=== PATIENT | male | born 1950 | race Caucasian/White ===

== ENCOUNTER 2018-04-20 19:56 | Inpatient (IN) | payer MEDICARE, OTHER, SELFPAY ==
[2018-04-20] VITALS (11 sets, daily range): BP systolic 95–120; BP diastolic 58–72; PULSE 70–95; RESP 20–28; TEMP 37.2–38.8; O2SAT 92–99; BMI 30.7
--- NOTE | 2018-04-20 20:03 | DI.RAD.S_ITS ---
PROCEDURE: XR CHEST 2V INDICATIONS: fever, low sat TECHNIQUE: 2 views of the chest were acquired. COMPARISON: None. FINDINGS: Surgical changes and devices: None. Lungs and pleura: No pleural effusions or pneumothorax. Retrocardiac patchy consolidative opacities. Mediastinum: Mediastinal contours are normal. Heart size is normal. Bones and chest wall: No suspicious bony abnormalities. Soft tissues appear unremarkable. IMPRESSION: Patchy retrocardiac opacities, suggestive of aspiration/atelectasis versus pneumonia. Please correlate clinically. Dictated by: Jacobo Ivory M.D. on 04/20/2018 at 21:49 Approved by: Jacobo Ivory M.D. on 04/20/2018 at 21:52
[2018-04-20] MEDS: SODIUM CHLORIDE 0.9% 1,000 ML 1000 ML IV (20:11)
--- NOTE | 2018-04-20 20:11 | ED.FEVER ---
HPI - Fever General Chief Complaint: Fever Stated Complaint: Fever/ Weakness Time Seen by Provider: 04/20/18 19:58 Source: patient and family Mode of arrival: EMS Limitations: no limitations History of Present Illness HPI Narrative: 68-year-old male brought in by EMS for concerns of a ?infection? patient's who is at bedside states that the patient has had MRSA in the past. She states that as today progressed he became more weak. Was short of breath at home. Started to not feel well. She did not give anything for it prior to arrival. Did have a fever. EMS reported the patient tachycardic and febrile. Patient was never hypotensive per EMS. Related Data Home Medications Medication Instructions Recorded Confirmed aspirin [Aspir-81] 81 mg PO DAILY 04/20/18 04/20/18 atorvastatin 40 mg PO DAILY 04/20/18 04/20/18 cyanocobalamin (vitamin B-12) 1,000 mcg PO DAILY 04/20/18 04/20/18 cyclobenzaprine 10 - 20 mg PO TID PRN 04/20/18 04/20/18 docusate sodium 100 mg PO DAILY 04/20/18 04/20/18 dronedarone 400 mg PO BID 04/20/18 04/20/18 duloxetine 120 mg PO DAILY 04/20/18 04/20/18 gabapentin 300 mg PO TID 04/20/18 04/20/18 glipizide 10 mg PO BID 04/20/18 04/20/18 hydrocodone-acetaminophen 1 tab PO Q6H PRN 04/20/18 04/20/18 isosorbide mononitrate 60 mg PO QAM 04/20/18 04/20/18 methyl salicylate-menthol 1 applic TOPICAL TID PRN 04/20/18 04/20/18 [Thera-Gesic] metoprolol succinate 50 mg PO DAILY 04/20/18 04/20/18 ranolazine 1,000 mg PO Q12H 04/20/18 04/20/18 sennosides 2 tab PO BID 04/20/18 04/20/18 warfarin 5 mg PO 5XW 04/20/18 04/20/18 warfarin [Coumadin] 5 mg PO 2XW 04/20/18 04/20/18 Allergies Allergy/AdvReac Type Severity Reaction Status Date / Time amitriptyline Allergy Unknown Verified 04/20/18 20:10 metformin Allergy Unknown Verified 04/20/18 20:10 Review of Systems Constitutional Reports chills, Reports fatigue, Reports fever(s), Reports headache(s), Reports lethargy and Reports weakness Eyes Denies change in vision, Denies diplopia, Denies loss of vision and Denies tunnel vision ENT Ears, Nose, Mouth, and Throat: Reports headache(s), Denies sinus pressure and Denies sore throat Comments: Dry mouth Cardiovascular Denies chest pain, Denies irregular heart rhythm, Denies lightheadedness, Denies palpitations, Reports dyspnea, Reports dyspnea on exertion and Denies orthopnea Respiratory Reports cough, Reports dyspnea and Reports dyspnea on exertion Comments: Gastrointestinal Gastrointestinal: Denies diarrhea, Denies nausea and Denies vomiting Genitourinary Denies dysuria Musculoskeletal Reports myalgias, Reports arthralgias and Denies muscle cramps Integumentary/Breasts Denies rash, Denies sores and Denies wounds Neurologic Denies confusion, Reports headache(s), Denies loss of vision and Reports weakness Psychiatric Denies confusion Endocrine Reports fatigue and Denies palpitations Hematologic/Lymphatic Denies easy bruising Exam Initial Vital Signs Initial Vital Signs: Vital Signs Temperature 100.1 F H 04/20/18 20:04 Pulse Rate 93 H 04/20/18 20:04 Respiratory Rate 27 H 04/20/18 20:04 Blood Pressure 120/67 04/20/18 20:04 Pulse Oximetry 92 04/20/18 20:04 Const General: cooperative, comfortable, No acute distress, diaphoretic and ill appearing HENCT Mouth: other (Dry mucous membranes) Throat: posterior oropharynx normal Chest Chest: normal inspection of the chest Resp Effort & Inspection: normal respiratory effort, able to speak in complete sentences, no respiratory distress and no use of accessory muscles Auscultation: clear to auscultation bilaterally, no rales, no rhonchi and no wheezes Cardio Rate: tachycardic Rhythm: regular rhythm Heart Sounds: no click, no gallops, no murmurs and no rubs Pulses: normal peripheral pulses GI Inspection: non-distended Palpation: soft, no hepatosplenomegaly, No guarding, No pulsatile mass and No tender Auscultation: normal bowel sounds Back/Spine/Pelvis Back: No CVA tenderness Skin General: no rashes or lesions noted, No jaundice and No petechiae Neuro General: alert, awake and oriented x3 Cognition: normal cognition Motor: muscle tone normal throughout Extrem General: normal to inspection Other: No gross deformities Course Orders Ordered: ED Orders 04/20/18 17:42 Bilirubin Total Stat Complete Blood Count AUTO DIFF Stat Lactate (Lactic Acid) Stat Procalcitonin Stat 04/20/18 19:40 Blood Culture Stat 04/20/18 20:03 XR chest 2V Stat 04/20/18 20:26 Blood Culture Stat 04/20/18 20:42 BMP [Basic Metabolic Panel] Stat 04/20/18 21:20 Urinalysis and Microscopic Stat Urine Culture Stat Sodium Chloride (Normal Saline 0.9%) 1,000 mls @ 125 mls/hr IV CONT GAGANDEEP Last Admin: 04/20/18 21:19 Dose: 125 mls/hr Levofloxacin (Levaquin) 750 mg in 150 mls @ 100 mls/hr IV NOW ONE Stop: 04/20/18 23:28 Discontinued Medications Acetaminophen (Tylenol) 975 mg PO NOW ONE Stop: 04/20/18 21:23 Last Admin: 04/20/18 21:31 Dose: 975 mg Sodium Chloride (Normal Saline 0.9%) 1,000 mls @ 1,000 mls/hr IV BOLUS ONE Stop: 04/20/18 21:04 Last Infusion: 04/20/18 21:12 Dose: 0 mls/hr Admin: 04/20/18 20:11 Dose: 1,000 mls/hr Ceftriaxone Sodium/Dextrose (Rocephin) 1 gm in 50 mls @ 100 mls/hr IV NOW ONE Stop: 04/20/18 21:51 Last Admin: 04/20/18 22:04 Dose: Vital Signs - 8 hr 04/20/18 20:04 04/20/18 20:05 04/20/18 20:07 Temperature 100.1 F H Pulse Rate 93 H 95 H Respiratory Rate 27 H 28 H Blood Pressure 120/67 Blood Pressure [Left Arm] 118/67 Pulse Oximetry 92 93 95 04/20/18 20:33 04/20/18 20:55 04/20/18 21:31 Temperature 101.8 F H 101.1 F H Pulse Rate 94 H Respiratory Rate 23 Blood Pressure Blood Pressure [Left Arm] 112/72 Pulse Oximetry 96 04/20/18 21:49 Temperature 99.1 F Pulse Rate 92 H Respiratory Rate 24 Blood Pressure Blood Pressure [Left Arm] 114/71 Pulse Oximetry 97 MDM - Fever Lab Data Attestation: I reviewed the patient's lab results. Result diagrams: 04/20/18 17:42 04/20/18 20:42 Lab Results 04/20/18 04/20/18 04/20/18 Range/Units 17:42 17:42 17:42 WBC 13.6 H (4.5-11.0) X10^3/uL RBC 3.94 L (4.5-5.9) X10^6/uL Hgb 13.2 L (13.5-17.5) g/dL Hct 38.2 L (41-53) % MCV 97.1 (80-100) fL MCH 33.5 (26-34) PG MCHC 34.5 (30-36) % RDW 12.6 (11.6-14.8) % Plt Count 173 (150-400) X10^3/uL Neut % (Auto) 92.3 H (50-75) % Lymph % (Auto) 1.8 L (25-40) % Dougherty % (Auto) 5.5 (3-14) % Eos % (Auto) 0.1 L (2-4) % Baso % (Auto) 0.3 (0-2) % Neut # (Auto) 64462 H (9928-6131) /uL Sodium Potassium Chloride Carbon Dioxide BUN Creatinine Estimated GFR BUN/Creatinine Ratio Glucose Lactate 1.1 (0.7-2.1) mmol/L Calcium Total Bilirubin (0.2-1.3) mg/dL Procalcitonin 2.54 H (<0.5) ng/mL Urine Color Urine Appearance Urine pH (4.5-8.0) Ur Specific [place] (1.000-1.035) Urine Protein (Negative) Urine Glucose (UA) (Normal) g/dL Urine Ketones (NEGATIVE) Urine Occult Blood (Negative) Urine Nitrate (Negative) Urine Bilirubin (NEGATIVE) Urine Urobilinogen (0.2) E.U./dL Ur Leukocyte Esterase (NEGATIVE) Urine RBC (0-5/HPF) Urine WBC (0-5/HPF) Urine Bacteria (None) Ur Culture Indicated? Micro UA Comment 06/10/18 06/10/18 06/10/18 Range/Units 17:42 19:40 19:40 WBC Cancelled (4.5-11.0) X10^3/uL RBC Cancelled (4.5-5.9) X10^6/uL Hgb Cancelled (13.5-17.5) g/dL Hct Cancelled (41-53) % MCV Cancelled (80-100) fL MCH Cancelled (26-34) PG MCHC Cancelled (30-36) % RDW Cancelled (11.6-14.8) % Plt Count Cancelled (150-400) X10^3/uL Neut % (Auto) Cancelled (50-75) % Lymph % (Auto) Cancelled (25-40) % Dougherty % (Auto) Cancelled (3-14) % Eos % (Auto) Cancelled (2-4) % Baso % (Auto) Cancelled (0-2) % Neut # (Auto) Cancelled (9692-7594) /uL Sodium Potassium Chloride Carbon Dioxide BUN Creatinine Estimated GFR BUN/Creatinine Ratio Glucose Lactate (0.7-2.1) mmol/L Calcium Total Bilirubin 0.9 (0.2-1.3) mg/dL Procalcitonin Cancelled (<0.5) ng/mL Urine Color Urine Appearance Urine pH (4.5-8.0) Ur Specific [place] (1.000-1.035) Urine Protein (Negative) Urine Glucose (UA) (Normal) g/dL Urine Ketones (NEGATIVE) Urine Occult Blood (Negative) Urine Nitrate (Negative) Urine Bilirubin (NEGATIVE) Urine Urobilinogen (0.2) E.U./dL Ur Leukocyte Esterase (NEGATIVE) Urine RBC (0-5/HPF) Urine WBC (0-5/HPF) Urine Bacteria (None) Ur Culture Indicated? Micro UA Comment 04/20/18 04/20/18 04/20/18 Range/Units 19:40 19:40 20:42 WBC (4.5-11.0) X10^3/uL RBC (4.5-5.9) X10^6/uL Hgb (13.5-17.5) g/dL Hct (41-53) % MCV (80-100) fL MCH (26-34) PG MCHC (30-36) % RDW (11.6-14.8) % Plt Count (150-400) X10^3/uL Neut % (Auto) (50-75) % Lymph % (Auto) (25-40) % Dougherty % (Auto) (3-14) % Eos % (Auto) (2-4) % Baso % (Auto) (0-2) % Neut # (Auto) (4198-6411) /uL Sodium Cancelled 132 L Potassium Cancelled 3.9 Chloride Cancelled 100 Carbon Dioxide Cancelled 20 L BUN Cancelled 17 Creatinine Cancelled 1.00 Estimated GFR Cancelled > 60.0 BUN/Creatinine Ratio Cancelled 17.0 Glucose Cancelled 189 H Lactate Cancelled (0.7-2.1) mmol/L Calcium Cancelled 8.7 Total Bilirubin Cancelled (0.2-1.3) mg/dL Procalcitonin (<0.5) ng/mL Urine Color Urine Appearance Urine pH (4.5-8.0) Ur Specific [place] (1.000-1.035) Urine Protein (Negative) Urine Glucose (UA) (Normal) g/dL Urine Ketones (NEGATIVE) Urine Occult Blood (Negative) Urine Nitrate (Negative) Urine Bilirubin (NEGATIVE) Urine Urobilinogen (0.2) E.U./dL Ur Leukocyte Esterase (NEGATIVE) Urine RBC (0-5/HPF) Urine WBC (0-5/HPF) Urine Bacteria (None) Ur Culture Indicated? Micro UA Comment 04/20/18 Range/Units 21:20 WBC (4.5-11.0) X10^3/uL RBC (4.5-5.9) X10^6/uL Hgb (13.5-17.5) g/dL Hct (41-53) % MCV (80-100) fL MCH (26-34) PG MCHC (30-36) % RDW (11.6-14.8) % Plt Count (150-400) X10^3/uL Neut % (Auto) (50-75) % Lymph % (Auto) (25-40) % Dougherty % (Auto) (3-14) % Eos % (Auto) (2-4) % Baso % (Auto) (0-2) % Neut # (Auto) (1530-2244) /uL Sodium Potassium Chloride Carbon Dioxide BUN Creatinine Estimated GFR BUN/Creatinine Ratio Glucose Lactate (0.7-2.1) mmol/L Calcium Total Bilirubin (0.2-1.3) mg/dL Procalcitonin (<0.5) ng/mL Urine Color Yellow Urine Appearance Clear Urine pH 5.0 (4.5-8.0) Ur Specific [place] 1.015 (1.000-1.035) Urine Protein Negative (Negative) Urine Glucose (UA) 3+ (Normal) g/dL Urine Ketones Trace H (NEGATIVE) Urine Occult Blood Negative (Negative) Urine Nitrate Negative (Negative) Urine Bilirubin Negative (NEGATIVE) Urine Urobilinogen 0.2 (0.2) E.U./dL Ur Leukocyte Esterase Negative (NEGATIVE) Urine RBC None seen (0-5/HPF) Urine WBC 0-1/hpf (0-5/HPF) Urine Bacteria None seen (None) Ur Culture Indicated? Not Reportable Micro UA Comment Not Reportable Imaging Data Chest x-ray: Radiologist's impression: PROCEDURE: XR CHEST 2V INDICATIONS: fever, low sat TECHNIQUE: 2 views of the chest were acquired. COMPARISON: None. FINDINGS: Surgical changes and devices: None. Lungs and pleura: No pleural effusions or pneumothorax. Retrocardiac patchy consolidative opacities. Mediastinum: Mediastinal contours are normal. Heart size is normal. Bones and chest wall: No suspicious bony abnormalities. Soft tissues appear unremarkable. IMPRESSION: Patchy retrocardiac opacities, suggestive of aspiration/atelectasis versus pneumonia. Please correlate clinically. Dictated by: Jacobo Ivory M.D. on 04/20/2018 at 21:49 MDM Narrative Medical decision making narrative: Patient arrived tachycardic and febrile. Was alert and oriented. Was somewhat slow to answer questions to begin with. No neck pain despite his headache that would make me concerned for meningitis. Was satting in the low 90s upon arrival. He is placed on 2 L of nasal cannula which improved his oxygen saturations. Chest x-ray concerning for retrocardiac consolidation. Urine unremarkable. Does not have an elevated lactate however does have an elevated white blood cell count an elevated procalcitonin. Patient was given Levaquin here in the ER. Was also given Tylenol which improved his fevers. I removed the patient's oxygen to see what happens with his oxygen saturation in he dipped to 86. He was placed back on 3 L which resolved his oxygen saturation to the low to mid 90s. Patient was tolerating oral intake. Discussed the case with Dr. Lancaster who will admit for IV antibiotics. Informed patient and his who was at bedside of the plan. They both expressed understanding and agreement. Discharge Plan Departure Patient Disposition: Admitted As Inpatient Clinical Impression: Pneumonia, Sepsis Prescriptions: No Action cyclobenzaprine 10 mg Tablet 10 - 20 mg PO TID PRN (Reason: Spasms) RF: 0 atorvastatin 40 mg Tablet 40 mg PO DAILY RF: 0 sennosides 8.6 mg Tablet 2 tab PO BID RF: 0 metoprolol succinate 50 mg Tablet Extended Release 24 Hr 50 mg PO DAILY RF: 0 glipizide 10 mg Tablet 10 mg PO BID RF: 0 hydrocodone-acetaminophen 10-325 mg Tablet 1 tab PO Q6H PRN (Reason: Pain (Scale Score 4-6)) RF: 0 aspirin [Aspir-81] 81 mg Tablet,Delayed Release (Dr/Ec) 81 mg PO DAILY RF: 0 isosorbide mononitrate 60 mg Tablet Extended Release 24 Hr 60 mg PO QAM RF: 0 warfarin 5 mg Tablet 5 mg PO 5XW RF: 0 warfarin [Coumadin] 5 mg Tablet 5 mg PO 2XW RF: 0 docusate sodium 100 mg Capsule 100 mg PO DAILY RF: 0 gabapentin 300 mg Capsule 300 mg PO TID RF: 0 duloxetine 60 mg Capsule,Delayed Release(Dr/Ec) 120 mg PO DAILY RF: 0 ranolazine 1,000 mg Tablet Extended Release 12 Hr 1,000 mg PO Q12H RF: 0 dronedarone 400 mg Tablet 400 mg PO BID RF: 0 methyl salicylate-menthol [Thera-Gesic] 15-1 % Cream 1 applic TOPICAL TID PRN (Reason: Pain (Scale Score 1-3)) RF: 0 cyanocobalamin (vitamin B-12) 1,000 mcg Capsule 1,000 mcg PO DAILY RF: 0
[2018-04-20 20:36] LABS: Add Manual Diff / Slide Review NO; Basophils Percent Auto 0.3 % (0-2); Eosinophils Percent Auto 0.1 % (2-4); Hematocrit 38.2 % (41-53); Hemoglobin 13.2 g/dL (13.5-17.5); Lymphocytes Percent Auto 1.8 % (25-40); Mean Corpuscular HGB Conc 34.5 % (30-36); Mean Corpuscular Hemoglobin 33.5 PG (26-34); Mean Corpuscular Volume 97.1 fL (80-100); Monocytes Percent Auto 5.5 % (3-14); Neutrophils Absolute Auto 12500 /uL (3000-5900); Neutrophils Percent Auto 92.3 % (50-75); Platelet Count 173 X10^3/uL (150-400); Red Blood Cell Count 3.94 X10^6/uL (4.5-5.9); Red Cell Distribution Width 12.6 % (11.6-14.8); White Blood Cell Count 13.6 X10^3/uL (4.5-11.0)
[2018-04-20 20:41] LABS: Procalcitonin 2.54 ng/mL (<0.5)
[2018-04-20 20:43] LABS: Lactate (Lactic Acid) 1.1 mmol/L (0.7-2.1)
[2018-04-20 20:46] LABS: Blood Urea Nitrogen 17 mg/dL (9-20); Calcium 8.7 mg/dL (8.4-10.2); Carbon Dioxide 20 mmol/L (22-32); Chloride 100 mmol/L (98-107); Estimated Glomerular Filt Rate > 60.0 mL/min (>60); Glucose 189 mg/dL (80-110); HEMOLYSIS 28 (0-50); Sodium 132 mmol/L (137-145)
[2018-04-20 20:50] LABS: Potassium 3.9 mmol/L (3.4-5.1)
[2018-04-20 20:54] LABS: Bilirubin Total 0.9 mg/dL (0.2-1.3)
[2018-04-20] MEDS: SODIUM CHLORIDE 0.9% 1,000 ML 125 ML IV (21:19)
[2018-04-20 21:29] LABS: Bacteria Urine None Seen; RBC Urine None Seen (0-5/HPF)
[2018-04-20] MEDS: ACETAMINOPHEN 325 MG TABLET 975 MG PO (21:31)
[2018-04-20 21:47] LABS: Appearance Urine UA CLEAR; Bilirubin Urine UA NEGATIVE (NEGATIVE); Color Urine UA YELLOW; Glucose Urine UA 3+ g/dL (Normal); Ketones Urine UA TRACE (NEGATIVE); Leukocyte Esterase Urine UA NEGATIVE (NEGATIVE); Nitrite Urine UA Negative (Negative); Occult Blood Urine UA NEGATIVE (Negative); Protein Urine UA NEGATIVE (Negative); Specific Gravity Urine UA 1.015 (1.000-1.035); Urobilinogen Urine UA 0.2 E.U./dL (0.2)
[2018-04-20 21:55] LABS: WBC Urine 0-1/HPF (0-5/HPF)
[2018-04-20] MEDS: levoFLOXacin 750 MG/150 ML PIGGYBACK 100 MG IV (22:06)
--- NOTE | 2018-04-20 22:56 | PC.NURSE ---
Admit note Patient admitted to room 210. Brought up on stretcher by nursing staff. Transferred to bed using slider board. Alert and oriented with pleasant affect. Patient very weak. Able to move all extremities. Oriented to room and call light, call light within reach. Spouse at bedside.
--- NOTE | 2018-04-20 23:39 | PC.NURSE ---
Patient admitted from Er @ 2230- awake, forgetful- weakness/lethargy today. Knows he is in hospital, unsure of date. says they have been travelling by car last month. Patient denies shortness of breath/ says he is warm and sweaty.
[2018-04-21] VITALS (19 sets, daily range): BP systolic 109–147; BP diastolic 61–79; PULSE 60–80; RESP 14–23; TEMP 36.3–37.9; O2SAT 92–100
--- NOTE | 2018-04-21 | DI.ECHO.S_ITS ---
[facility] +---------+ Hospital +---------+ : : [address] : : : : [id number] : : : : Phone: [phone] Echocardiogram Report + + :Name: OLINDA AGUILA Study Date: 04/21/2018 Height: 70 in : :[facility] Weight: 222 lb : : Gender: Male BSA: 2.2 m2 : :: 1950 Age: 68 yrs BP: 132/64 mmHg: :Reason For Study: Aortic valve replacement - bioprosthetic : : Performed By: Julienne Gregg : :Referring: AL ABRAHAM : + + Interpretation Summary Normal left ventricle size with ejection fraction 60-65%. Moderately dilated left atrium. Mildly dilated right atrium. Moderate mitral annular calcification. The bioprosthetic aortic valve is well-seated. Mildly enlarged ascending aorta. Procedure: A two-dimensional transthoracic echocardiogram with color flow and Doppler was performed. The study quality was technically adequate. There is no prior echocardiogram noted for this patient. The patient was in normal sinus rhythm during the exam. Left Ventricle: The left ventricle is normal in size. There is normal left ventricular wall thickness. The ejection fraction is estimated to be 60-65%. There are no focal wall motion abnormalities. Assessment of diastolic parameters indicates normal left ventricular diastolic function and normal filling pressures. Right Ventricle: The right ventricle grossly appears normal in size with probable normal systolic function. Atria: The left atrium is moderately dilated. The right atrium is mildly dilated. The interatrial septum is intact with no evidence for an atrial septal defect. Mitral Valve: The mitral valve leaflets appear mildly thickened, but open well. There is moderate mitral annular calcification. There is no mitral regurgitation noted. Aortic Valve: There is a porcine aortic valve. The prosthetic aortic valve is well-seated. There is trace aortic regurgitation. Tricuspid Valve: The tricuspid valve leaflets are thin and pliable. There is mild tricuspid regurgitation. The right ventricular systolic pressure is estimated at 34 mmHg assuming a right atrial pressure of 3 mm Hg. Pulmonic Valve: The pulmonic valve is normal in structure and function. There is trace pulmonic regurgitation. Great Vessels: The aortic root is normal size. The ascending aorta is mildly enlarged. The IVC is of normal diameter and collapses greater than 50% with a sniff. This suggests a low right atrial pressure of 3 mm Hg. Pericardium/ Pleura There is no pericardial effusion. There is no pleural effusion. MMode/2D Measurements & Calculations LVIDd: 5.3 cm LVOT diam: 2.3 cm LVIDs: 3.3 cm Ao root diam: 3.1 cm FS: 38.1 % Aortic Jxn: 2.0 cm EPSS: 0.66 cm asc Aorta Diam: 3.7 cm IVSd: 0.99 cm Ao Arch Diam (Prox Trans): 3.2 cm LVPWd: 1.0 cm LV mann. diameter/BSA (cm/m^2): 2.4 LV sys. diameter/BSA (cm/m^2): 1.5 LA dimension: 4.8 cm RA long axis: 5.5 cm LA A2 area: 33.0 cm2 RA area: 24.4 cm2 LA A4 area: 28.1 cm2 RA vol: 92.8 ml LA length (vol): 6.1 cm RA : 42.5 ml/m2 LA vol: 128.5 ml IVC diam: 1.4 cm LA vol index: 58.9 ml/m2 RVDd major: 6.1 cm RVD1 (basal): 4.3 cm RVD2 (mid): 3.8 cm Doppler Measurements & Calculations Ao V2 max: 281.4 cm/sec LVOT Max Ky: 94.4 cm/sec Ao V2 mean: 172.7 cm/sec LV V1 max P.6 mmHg Ao max P.7 mmHg LV V1 VTI: 26.2 cm Ao mean P.0 mmHg ANGI(I,D): 1.8 cm2 Ao V2 VTI: 60.0 cm ANGI(V,D): 1.4 cm2 sev ratio: 0.44 ANGI indexed to BSA (cm^2/m^2): 0.84 AI P1/2t: 478.6 msec AI dec slope: 272.0 cm/sec2 MV E max ky: 127.9 cm/sec TR max ky: 280.1 cm/sec MV A max ky: 105.0 cm/sec TR max P.4 mmHg MV E/A: 1.2 PA V2 max: 87.4 cm/sec Med Peak E' Ky: 7.9 cm/sec PA V2 mean: 58.8 cm/sec E/E' med: 16.2 PA mean P.6 mmHg Lat Peak E' Ky: 10.2 cm/sec PA Accel Time: 0.13 sec E/E' lat: 12.5 E/e' average: 14.4 MV dec time: 0.22 sec MV P1/2t: 67.2 msec MV 2t max ky: 128.9 cm/sec MVA(2t): 3.3 cm2 Electronically signed by: Manpreet Slade on Reading Physician:04/21/2018 04:41 PM
--- NOTE | 2018-04-21 00:55 | PC.NURSE ---
Addendum entered by Katey Olsen R.N. 04/21/18 06:44: Remains afebrile this morning. O2 sat 94-96% on 2L/min oxygen. Has slept most of shift. Original Note: Addendum entered by Katey Olsen R.N. 04/21/18 02:23: Temp now 97.3, patient calmer and no longer trying to get out of bed. Original Note: Addendum entered by Katey Olsen R.N. 04/21/18 01:36: Patient had small amount clear liquid, unmeasured emesis; medicated with Zofran. Rechecked temperature and now at 103.1 and patient much more confused. Asking to get up out of bed and walk around. Throwing legs out side of bed. Skin warm and damp; medicated with Tylenol. Patient moved to room 207 for closer staff monitoring. Original Note: Patient is oriented to self, place, birthdate, month and situation. Breath sounds CTA with sat of 99% on oxygen at 2L/min per NC. Currently complains of being cold and skin is warm; temperature is 100.1 but had Tylenol in ER around 2130. HRR and was SR on 0000 tele reading. Denies nausea. BT hypoactive and abdomen is rounded and firm to touch. Denies dysuria, frequency, urgency or incontinence; was able to use urinal with assistance. Independent with bed mobility. Complains of 3/10 chronic right flank pain but declines intervention. Scattered abrasions noted on right LE. Fall risk score is medium; bed alarm is activated due to confusion.
[2018-04-21] MEDS: ONDANSETRON 4 MG/2 ML INJ IV (01:20)
[2018-04-21] MEDS: ACETAMINOPHEN 325 MG TABLET 650 MG PO ×3 (01:26→14:06)
[2018-04-21] MEDS: SODIUM CHLORIDE 0.9% 1,000 ML 125 ML IV ×2 (07:22→16:20)
[2018-04-21 09:43] LABS: Acinetobacter baumannii Not Detected (Not Detect); Candida albicans Not Detected (Not Detect); Candida glabrata Not Detected (Not Detect); Candida krusei Not Detected (Not Detect); Candida parapsilosis Not Detected (Not Detect); Candida tropicalis Not Detected (Not Detect); E. coli Not Detected (Not Detect); Enterobacter cloacae complex Not Detected (Not Detect); Enterobacteriaceae species Not Detected (Not Detect); Enterococcus species Not Detected (Not Detect); Haemophilus influenzae Not Detected (Not Detect); KPC (carbapenem-resist gene) Not Detected (Not Detect); Listeria monocytogenes Not Detected (Not Detect); Methicillin-resistant gene Not Detected (Not Detect); Neisseria meningitidis Not Detected (Not Detect); Proteus species Not Detected (Not Detect); Pseudomonas aeruginosa Not Detected (Not Detect); Serratia marcescens Not Detected (Not Detect); Streptococcus agalactiae (Gr B Not Detected (Not Detect); Streptococcus pneumonia Not Detected (Not Detect); Streptococcus pyogenes (Gr A) Not Detected (Not Detect); Streptococcus species Not Detected (Not Detect)
[2018-04-21 09:44] LABS: Staphylococcus species Detected (Not Detect)
[2018-04-21 10:26] LABS: INR 2.4 (0.9-1.3); Prothrombin Time 25.8 SECONDS (10.1-12.7)
--- NOTE | 2018-04-21 10:50 | P.HP_ITS ---
History of Present Illness Date Patient Seen: 04/21/18 Time Patient Seen: 10:00 Chief complaint: Sepsis / Pneumonia Narrative: 68-year-old man with history of aortic valve replacement and recurrent endocarditis who was brought to the [facility] Emergency room yesterday for fever. He and his are visiting their daughter from [place]. He woke up yesterday morning feeling aching all over his body. Subsequently he started having fever. His temperature went up to 103. He has some mild chronic cough, however the cough has not gotten worse lately. He has some right calf pain. He was noted to have elevated white blood cell count. His blood culture 4 bottles were positive for Staph aureus. Chest x-ray showed possible retrocardiac infiltrate. He received IV Levaquin and ceftriaxone at the emergency room. He was admitted to the medicine floor for possible pneumonia. Patient was noted to be confused at the emergency room. His family feels his mental status has significantly improved overnight. Patient History Medical History Atrial fibrillation (Acute) Boxer's fracture (Acute) Diabetes (Acute) HTN (hypertension) (Acute) History of IBS (Acute) Prostate CA (Acute) Renal cancer (Acute) S/p nephrectomy (Acute) Surgical History H/O aortic valve replacement (Acute) History of partial knee replacement (Acute) Hx of exploratory laparotomy (Acute) S/P TURP (Acute) Comment: Coronary artery disease Endocarditis, initially occurred about 5 years ago after his kidney surgery. He received antibiotics treatment. He had recurrent endocarditis in 2014. A attic valve replacement in 2010 Kidney cancer, status post partial nephrectomy Chronic back pain after kidney surgery, he is on [place] and gabapentin for pain control. Family & Social History Family History: Reviewed 04/21/18 by Delphine Dhaliwal MD Social History: household members spouse Prior Living Arrangements RV Safety & Behavioral: Feels Safe in Current Yes Environment Been Physically Hurt or No Threatened By a Person Suicidal Ideation Description None Suicide Plan Description No Plan Tobacco & Substance use: Smoking Status Never smoker alcohol intake never Substance Use Type does not use Comment: He is and lives with his . Denies alcohol drinking or cigarette smoking. Meds Home Medications Medication Instructions Recorded Confirmed Type aspirin [Aspir-81] 81 mg PO DAILY 04/20/18 04/20/18 History atorvastatin 40 mg PO DAILY 04/20/18 04/20/18 History cyanocobalamin (vitamin B-12) 1,000 mcg PO DAILY 04/20/18 04/20/18 History cyclobenzaprine 10 - 20 mg PO TID PRN 04/20/18 04/20/18 History docusate sodium 100 mg PO DAILY 04/20/18 04/20/18 History dronedarone 400 mg PO BID 04/20/18 04/20/18 History duloxetine 120 mg PO DAILY 04/20/18 04/20/18 History gabapentin 300 mg PO TID 04/20/18 04/20/18 History glipizide 10 mg PO BID 04/20/18 04/20/18 History hydrocodone-acetaminophen 1 tab PO Q6H PRN 04/20/18 04/20/18 History isosorbide mononitrate 60 mg PO QAM 04/20/18 04/20/18 History methyl salicylate-menthol 1 applic TOPICAL TID PRN 04/20/18 04/20/18 History [Thera-Gesic] metoprolol succinate 50 mg PO DAILY 04/20/18 04/20/18 History ranolazine 1,000 mg PO Q12H 04/20/18 04/20/18 History sennosides 2 tab PO BID 04/20/18 04/20/18 History warfarin 5 mg PO 5XW 04/20/18 04/20/18 History warfarin [Coumadin] 5 mg PO 2XW 04/20/18 04/20/18 History Allergies Allergy/AdvReac Type Severity Reaction Status Date / Time amitriptyline Allergy Unknown Verified 04/20/18 20:10 metformin Allergy Unknown Verified 04/20/18 20:10 dicyclomine [From Bentyl] AdvReac Verified 04/20/18 22:50 Review of Systems Constitutional Constitutional: Reports body ache(s), Reports chills, Reports fatigue and Reports fever(s) Cardiovascular Comments: No chest pain Respiratory Comments: Mild chronic cough, denies shortness of breath Gastrointestinal Comments: No abdominal pain Genitourinary Comments: No dysuria Musculoskeletal Comments: He had right calf pain yesterday. He is having left leg pain today. Neurologic Comments: No numbness or tingling. Endocrine Endocrine: Reports fatigue Exam Vital Signs (past 8 hours): Vital Signs - 8 hr 3 04/21/18 05:03 04/21/18 08:00 04/21/18 09:50 Temperature 97.3 F L 97.7 F 99.6 F Pulse Rate 60 75 Respiratory Rate 20 14 Blood Pressure 116/68 114/64 Pulse Oximetry 94 99 3 04/21/18 10:07 Temperature 99.6 F Pulse Rate Respiratory Rate Blood Pressure Pulse Oximetry Pulse Oximetry 99 Oxygen Delivery Method Nasal Cannula Oxygen Flow Rate 1.5 Narrative Exam Narrative: GENERAL: Middle aged man in no acute distress. HEENT: Head normocephalic, atraumatic. Eyes pupils equal round NECK: Supple, no JVD, CHEST: Breath sounds equal bilaterally, no wheezes rales or rhonchi. CARDIAC: Regular rate and rhythm without murmurs, rubs or gallops. ABDOMEN: Soft, nontender. Normoactive bowel sounds all 4 quadrants. No guarding or rebound. EXTREMITIES: Normal range of motion, no clubbing or edema. NEUROLOGICAL: Alert and oriented; Normal muscle strength. SKIN: Warm, dry, no petechiae, no rashes or lesions. Objective Imaging Chest x-ray: Radiologist's impression: Patchy retrocardiac opacities, suggestive of aspiration/atelectasis versus pneumonia. Please correlate clinically. Labs Result Diagrams: 04/20/18 17:42 04/20/18 20:42 Labs: Laboratory Results - last 24 hr 04/20/18 04/20/18 04/20/18 17:42 17:42 17:42 WBC 13.6 H RBC 3.94 L Hgb 13.2 L Hct 38.2 L MCV 97.1 MCH 33.5 MCHC 34.5 RDW 12.6 Plt Count 173 Neut % (Auto) 92.3 H Lymph % (Auto) 1.8 L [place] % (Auto) 5.5 Eos % (Auto) 0.1 L Baso % (Auto) 0.3 Neut # (Auto) 27829 H PT INR Sodium Potassium Chloride Carbon Dioxide BUN Creatinine Estimated GFR BUN/Creatinine Ratio Glucose Lactate 1.1 Calcium Total Bilirubin Procalcitonin 2.54 H Urine Color Urine Appearance Urine pH Ur Specific [place] Urine Protein Urine Glucose (UA) Urine Ketones Urine Occult Blood Urine Nitrate Urine Bilirubin Urine Urobilinogen Ur Leukocyte Esterase Urine RBC Urine WBC Urine Bacteria Ur Culture Indicated? Micro UA Comment A. baumannii (PCR) [place] albicans (PCR) C. glabrata (PCR) C. krusei (PCR) C. parapsilosis (PCR) C. tropicalis (PCR) Enterobacteriac sp PCR E. cloacae complex PCR Enterococcus sp PCR E. coli (PCR) H. influenzae (PCR) Klebsiella oxytoca PCR Klebsiella pneumoniae List. monocytogenes PCR N. meningitidis (PCR) Proteus species (PCR) Serratia marcescens PCR Staphylococcus sp PCR Staph aureus (PCR) mecA-Methicil Res Gene Streptococcus sp PCR Group A Strep (PCR) Strep agalactiae (PCR) Strep pneumoniae (PCR) P. aeruginosa (PCR) Clem/B-Vanco Res Genes KPC-Carbap Res Gene PCR 04/20/18 04/20/18 04/20/18 17:42 19:40 19:40 WBC Cancelled RBC Cancelled Hgb Cancelled Hct Cancelled MCV Cancelled MCH Cancelled MCHC Cancelled RDW Cancelled Plt Count Cancelled Neut % (Auto) Cancelled Lymph % (Auto) Cancelled [place] % (Auto) Cancelled Eos % (Auto) Cancelled Baso % (Auto) Cancelled Neut # (Auto) Cancelled PT INR Sodium Potassium Chloride Carbon Dioxide BUN Creatinine Estimated GFR BUN/Creatinine Ratio Glucose Lactate Calcium Total Bilirubin 0.9 Procalcitonin Cancelled Urine Color Urine Appearance Urine pH Ur Specific [place] Urine Protein Urine Glucose (UA) Urine Ketones Urine Occult Blood Urine Nitrate Urine Bilirubin Urine Urobilinogen Ur Leukocyte Esterase Urine RBC Urine WBC Urine Bacteria Ur Culture Indicated? Micro UA Comment A. baumannii (PCR) [place] albicans (PCR) C. glabrata (PCR) C. krusei (PCR) C. parapsilosis (PCR) C. tropicalis (PCR) Enterobacteriac sp PCR E. cloacae complex PCR Enterococcus sp PCR E. coli (PCR) H. influenzae (PCR) Klebsiella oxytoca PCR Klebsiella pneumoniae List. monocytogenes PCR N. meningitidis (PCR) Proteus species (PCR) Serratia marcescens PCR Staphylococcus sp PCR Staph aureus (PCR) mecA-Methicil Res Gene Streptococcus sp PCR Group A Strep (PCR) Strep agalactiae (PCR) Strep pneumoniae (PCR) P. aeruginosa (PCR) Clem/B-Vanco Res Genes KPC-Carbap Res Gene PCR 04/20/18 04/20/18 04/20/18 19:40 19:40 20:42 WBC RBC Hgb Hct MCV MCH MCHC RDW Plt Count Neut % (Auto) Lymph % (Auto) [place] % (Auto) Eos % (Auto) Baso % (Auto) Neut # (Auto) PT INR Sodium Cancelled 132 L Potassium Cancelled 3.9 Chloride Cancelled 100 Carbon Dioxide Cancelled 20 L BUN Cancelled 17 Creatinine Cancelled 1.00 Estimated GFR Cancelled > 60.0 BUN/Creatinine Ratio Cancelled 17.0 Glucose Cancelled 189 H Lactate Cancelled Calcium Cancelled 8.7 Total Bilirubin Cancelled Procalcitonin Urine Color Urine Appearance Urine pH Ur Specific [place] Urine Protein Urine Glucose (UA) Urine Ketones Urine Occult Blood Urine Nitrate Urine Bilirubin Urine Urobilinogen Ur Leukocyte Esterase Urine RBC Urine WBC Urine Bacteria Ur Culture Indicated? Micro UA Comment A. baumannii (PCR) [place] albicans (PCR) C. glabrata (PCR) C. krusei (PCR) C. parapsilosis (PCR) C. tropicalis (PCR) Enterobacteriac sp PCR E. cloacae complex PCR Enterococcus sp PCR E. coli (PCR) H. influenzae (PCR) Klebsiella oxytoca PCR Klebsiella pneumoniae List. monocytogenes PCR N. meningitidis (PCR) Proteus species (PCR) Serratia marcescens PCR Staphylococcus sp PCR Staph aureus (PCR) mecA-Methicil Res Gene Streptococcus sp PCR Group A Strep (PCR) Strep agalactiae (PCR) Strep pneumoniae (PCR) P. aeruginosa (PCR) Clem/B-Vanco Res Genes KPC-Carbap Res Gene PCR 04/20/18 04/21/18 04/21/18 21:20 07:53 10:05 WBC RBC Hgb Hct MCV MCH MCHC RDW Plt Count Neut % (Auto) Lymph % (Auto) [place] % (Auto) Eos % (Auto) Baso % (Auto) Neut # (Auto) PT 25.8 H INR 2.4 H Sodium Potassium Chloride Carbon Dioxide BUN Creatinine Estimated GFR BUN/Creatinine Ratio Glucose Lactate Calcium Total Bilirubin Procalcitonin Urine Color Yellow Urine Appearance Clear Urine pH 5.0 Ur Specific [place] 1.015 Urine Protein Negative Urine Glucose (UA) 3+ Urine Ketones Trace H Urine Occult Blood Negative Urine Nitrate Negative Urine Bilirubin Negative Urine Urobilinogen 0.2 Ur Leukocyte Esterase Negative Urine RBC None seen Urine WBC 0-1/hpf Urine Bacteria None seen Ur Culture Indicated? Not Reportable Micro UA Comment Not Reportable A. baumannii (PCR) Not detected [place] albicans (PCR) Not detected C. glabrata (PCR) Not detected C. krusei (PCR) Not detected C. parapsilosis (PCR) Not detected C. tropicalis (PCR) Not detected Enterobacteriac sp PCR Not detected E. cloacae complex PCR Not detected Enterococcus sp PCR Not detected E. coli (PCR) Not detected H. influenzae (PCR) Not detected Klebsiella oxytoca PCR Not detected Klebsiella pneumoniae Not detected List. monocytogenes PCR Not detected N. meningitidis (PCR) Not detected Proteus species (PCR) Not detected Serratia marcescens PCR Not detected Staphylococcus sp PCR Detected H Staph aureus (PCR) Detected H mecA-Methicil Res Gene Not detected Streptococcus sp PCR Not detected Group A Strep (PCR) Not detected Strep agalactiae (PCR) Not detected Strep pneumoniae (PCR) Not detected P. aeruginosa (PCR) Not detected Clem/B-Vanco Res Genes Not Reportable KPC-Carbap Res Gene PCR Not detected Assessment & Plan Plan: Assessment/Plan Narrative: 1. Probable recurrent endocarditis: Continue ceftriaxone IV. We will also add vancomycin to cover possible MRSA infection. Follow his blood culture ID and sensitivity. He likely will require 6-8 weeks of IV antibiotics treatment. We will do a transthoracic echo today. He may need transesophageal echo in the near future to evaluate for possible vegetation or abscess. With his history of aortic replacement and history of recurrent endocarditis, there is concern of possible abscess around the aortic valve. He needs outpatient evaluation and follow up with his vascular surgeon for further evaluation and treatment. 2. Sepsis secondary to the probable recurrent endocarditis: He had fever up to 103, leukocytosis, tachycardia, and confusion on admission. He has fever and mental status have improved. We will continue treating the underlying cause. 3. Chronic atrial fibrillation: Continue Dronedarone. We will check his PT/ INR. Continue Coumadin for anticoagulation. 4. Type 2 diabetes: Check fingerstick glucose before meals and at bedtime. Continue glipizide per outpatient dosing 5. Coronary artery disease: Continue outpatient medications with metoprolol, Imdur, andRanodazine. 6. Chronic low back pain: Continue gabapentin and [place] per outpatient dosing 7. Hyperlipidemia: Continue atorvastatin 8. Code status: Do not resuscitate. Code status was discussed with patient himself. Quality VTE Deep Vein Thrombosis/Pulmonary Embolism Present on Admission: No
--- NOTE | 2018-04-21 10:58 | CM.DANOTE ---
DCP/Assessment: Reviewed chart. Patient is a 68yr old male admitted [facility] with sepsis. Primary payor is 1)Medicare 2) for Life. PCP is [facility] (Sergio Holt) in [place], [place]. Met with patient and spouse/Lizzie at bedside explained CM/SW role. Patient alert and oriented at time of visit but reports that he is not feeling well. RN reports patient currently with MRSA in hi blood. Patient reports that he was in area visiting family when he got sick. Patient plans to return to [place] when stable. Patient reports that he is completely I in all ADL's. Spouse confirms. At this time no d/c needs identified. Notified patient and spouse that CM team would continue to follow. Patient aware and agreeable. P: Home when stable. JASVIR Patel
[2018-04-21] MEDS: DULOXETINE 30 MG CAPSULE 120 MG PO (11:08)
[2018-04-21] MEDS: HYDROCODONE/ACET 10/325 TABLET 1 TAB PO ×2 (11:09→17:39)
[2018-04-21] MEDS: VANCOMYCIN 1,250 MG in SODIUM CHLORIDE 0.9% 250 ML IV ×2 (11:14→22:09)
[2018-04-21] MEDS: METOPROLOL ER 50 MG TABLET PO (11:36)
[2018-04-21] MEDS: GABAPENTIN 300 MG CAPSULE PO ×2 (14:06→20:58)
[2018-04-21] MEDS: CEFTRIAXONE 1 GM/50 ML FROZ.PIGGY IV (20:54)
[2018-04-21] MEDS: SENNOSIDES 8.6 MG TABLET 17.2 MG PO (20:57)
[2018-04-21] MEDS: glipiZIDE 5 MG TABLET 10 MG PO (20:57)
[2018-04-21] MEDS: DRONEDARONE 400 MG TABLET PO (20:58)
--- NOTE | 2018-04-21 21:36 | PC.NURSE ---
Patient has been dozing intermittently all shift so far, easily awakened by voice/touch. temps have been either wnl or low-grade (98.6, 99.1, 98.9, 99.4). This RN has not given patient tylenol except for norco 10 mg given at 1735 (325 mg total this shift). patient has felt slightly sweaty this shift, kept cool with uncovering his feet, cool washcloths, and icewater. call light in reach.
[2018-04-22] VITALS (14 sets, daily range): BP systolic 105–138; BP diastolic 56–80; PULSE 60–121; RESP 16–22; TEMP 36.4–37.3; O2SAT 90–98
--- NOTE | 2018-04-22 00:46 | PC.NURSE ---
Pt placed on isolation for positive Staph aureus cultures in blood. ED note indicates stated pt has history of MRSA.
[2018-04-22] MEDS: SODIUM CHLORIDE 0.9% 1,000 ML 125 ML IV (02:41)
[2018-04-22 07:32] LABS: Add Manual Diff / Slide Review NO; BUN Creatinine Ratio 27.1 (6-22); Basophils Percent Auto 0.3 % (0-2); Blood Urea Nitrogen 19 mg/dL (9-20); Calcium 8.4 mg/dL (8.4-10.2); Carbon Dioxide 23 mmol/L (22-32); Chloride 103 mmol/L (98-107); Eosinophils Percent Auto 0.3 % (2-4); Estimated Glomerular Filt Rate > 60.0 mL/min (>60); Glucose 79 mg/dL (80-110); HEMOLYSIS < 15 (0-50); Hematocrit 36.6 % (41-53); Hemoglobin 12.8 g/dL (13.5-17.5); Mean Corpuscular Hemoglobin 33.7 PG (26-34); Mean Corpuscular Volume 96.4 fL (80-100); Monocytes Percent Auto 7.9 % (3-14); Neutrophils Absolute Auto 6900 /uL (3000-5900); Neutrophils Percent Auto 85.5 % (50-75); Platelet Count 140 X10^3/uL (150-400); Potassium 3.7 mmol/L (3.4-5.1); Sodium 135 mmol/L (137-145); White Blood Cell Count 8.1 X10^3/uL (4.5-11.0)
[2018-04-22] MEDS: ASPIRIN EC 81 MG TABLET PO (08:39)
[2018-04-22] MEDS: ATORVASTATIN 20 MG TABLET 40 MG PO (08:39)
[2018-04-22] MEDS: CYANOCOBALAMIN (VITAMIN B-12) 500 MCG TABLET 1000 MCG PO (08:40)
[2018-04-22] MEDS: DRONEDARONE 400 MG TABLET PO ×2 (08:40→20:33)
[2018-04-22] MEDS: DOCUSATE 100 MG CAPSULE PO (08:40)
[2018-04-22] MEDS: GABAPENTIN 300 MG CAPSULE PO ×3 (08:41→20:33)
[2018-04-22] MEDS: DULOXETINE 30 MG CAPSULE 120 MG PO (08:42)
[2018-04-22] MEDS: ISOSORBIDE MONONITRATE ER 30 MG TABLET 60 MG PO (08:43)
[2018-04-22] MEDS: glipiZIDE 5 MG TABLET 10 MG PO ×2 (08:43→20:34)
[2018-04-22] MEDS: METOPROLOL ER 50 MG TABLET PO (08:44)
[2018-04-22] MEDS: SENNOSIDES 8.6 MG TABLET 17.2 MG PO ×2 (08:45→20:33)
[2018-04-22] MEDS: HYDROCODONE/ACET 10/325 TABLET 1 TAB PO ×2 (08:52→21:13)
--- NOTE | 2018-04-22 10:30 | PM.PN.1 ---
Subjective Date Patient Seen: 04/22/18 Time Patient Seen: 10:00 Interval history: Patient has improvement of his fever and malaise. He was able to sit in the chair and ambulated to the bathroom with assistance. Nursing has noticed his heart rate is in the range of 110-130. Exam Vital Signs (past 8 hours): Vital Signs - 8 hr 04/22/18 05:20 04/22/18 07:00 04/22/18 07:50 Temperature 99.1 F 98.6 F Pulse Rate 66 67 Respiratory Rate 22 16 Blood Pressure 138/77 H 134/80 H Pulse Oximetry 98 90 L 98 04/22/18 08:44 Temperature Pulse Rate 121 H Respiratory Rate Blood Pressure 134/80 H Pulse Oximetry Pulse Oximetry 98 Oxygen Delivery Method Nasal Cannula Oxygen Flow Rate 3 Narrative Exam Narrative: GENERAL: Middle aged man in no acute distress. NECK: Supple, no JVD, CHEST: Breath sounds equal bilaterally, no wheezes rales or rhonchi. CARDIAC: Irregular rhythm without murmurs, rubs or gallops. ABDOMEN: Soft, nontender. Normoactive bowel sounds all 4 quadrants. No guarding or rebound. EXTREMITIES: Normal range of motion, no clubbing or edema. NEUROLOGICAL: Alert and oriented; Normal muscle strength. SKIN: Warm, dry, no petechiae, no rashes or lesions. Objective Labs Result Diagrams: 04/22/18 06:30 04/22/18 06:30 Labs: Laboratory Results - last 24 hr 04/21/18 04/22/18 04/22/18 10:05 06:30 06:30 WBC 8.1 RBC 3.80 L Hgb 12.8 L Hct 36.6 L MCV 96.4 MCH 33.7 MCHC 35.0 RDW 13.0 Plt Count 140 L Neut % (Auto) 85.5 H Lymph % (Auto) 6.0 L [place] % (Auto) 7.9 Eos % (Auto) 0.3 L Baso % (Auto) 0.3 Neut # (Auto) 6900 H PT 25.8 H INR 2.4 H Sodium 135 L Potassium 3.7 Chloride 103 Carbon Dioxide 23 BUN 19 Creatinine 0.70 Estimated GFR > 60.0 BUN/Creatinine Ratio 27.1 H Glucose 79 L D Calcium 8.4 Assessment & Plan Plan: Assessment/Plan Narrative: 1. Probable recurrent endocarditis: Blood culture sensitivity is still pending. Continue ceftriaxone IV. And vancomycin IV. Follow his blood culture ID and sensitivity. He likely will require 6-8 weeks of IV antibiotics treatment. Transthoracic echocardiogram was done on April 21, 2018. The reading is still pending.. He may need transesophageal echo in the near future to evaluate for possible vegetation or abscess. With his history of aortic replacement and history of recurrent endocarditis, there is concern of possible abscess around the aortic valve. He needs outpatient evaluation and follow up with his vascular surgeon for further evaluation and treatment. 2. Sepsis secondary to the probable recurrent endocarditis: He had fever up to 103, leukocytosis, tachycardia, and confusion on admission. He has fever and mental status have improved. We will continue treating the underlying cause. 3. Chronic atrial fibrillation: Dronedarone was restarted today. Continue Coumadin for anticoagulation. INR was 2.4 on April 21, 2018. Continue follow his INR 4. Type 2 diabetes: Continue glipizide per outpatient dosing. Continue monitor his fingerstick glucose readings 5. Coronary artery disease: Continue outpatient medications with metoprolol, Imdur, and Ranodazine. 6. Chronic low back pain: Continue gabapentin and [place] per outpatient dosing. Restart cyclobenzaprine as needed 7. Hyperlipidemia: Continue atorvastatin 8. Code status: Do not resuscitate. Code status was discussed with patient himself. Quality VTE Deep Vein Thrombosis/Pulmonary Embolism Present on Admission: No
[2018-04-22] MEDS: VANCOMYCIN 1,250 MG in SODIUM CHLORIDE 0.9% 250 ML IV ×2 (10:55→21:14)
[2018-04-22] MEDS: RANOLAZINE 500 MG TAB.ER.12H 1000 MG PO ×2 (10:56→22:21)
[2018-04-22] MEDS: WARFARIN 5 MG TABLET PO (17:41)
[2018-04-22] MEDS: CYCLOBENZAPRINE 10 MG TABLET PO (17:45)
[2018-04-22] MEDS: CEFTRIAXONE 1 GM/50 ML FROZ.PIGGY IV (20:33)
[2018-04-23] VITALS (11 sets, daily range): BP systolic 92–143; BP diastolic 55–75; PULSE 59–76; RESP 16–20; TEMP 36.5–37.2; O2SAT 94–98
--- NOTE | 2018-04-23 | DI.CT.S_ITS ---
PROCEDURE: CT CHEST WO CON INDICATIONS: 68 year-old male with suspected pneumonia. TECHNIQUE: Noncontrast 5 mm thick sections acquired from the pulmonary apices to the posterior costophrenic angles. 7 mm thick coronal and sagittal MIP reformats were then acquired. For radiation dose reduction, the following was used: automated exposure control, adjustment of mA and/or kV according to patient size. COMPARISON: [facility], CR, XR CHEST 2V, 04/20/2018, 20:39. FINDINGS: Image quality: Excellent. Lungs and pleura: No acute air space opacities. There is minimal posterior lung base atelectasis. No pleural effusions or pneumothorax. Central and peripheral airways are patent and normal in caliber. Mediastinum: Heart size is upper normal, with diffuse coronary artery atherosclerosis status post bypass grafting. No pericardial effusion. No mediastinal adenopathy by size criteria. Thoracic aorta and central pulmonary arteries are normal in size. Esophagus is normal in caliber. No hiatal hernia. Bones and chest wall: No suspicious bony lesions. No vertebral body compression fractures. No axillary or supraclavicular adenopathy by size criteria. Thyroid gland is normal in size. Abdomen: Multiple hepatic simple cysts are present. IMPRESSION: 1. No imaging evidence for pneumonia. 2. Multiple variably sized hepatic simple cysts. Dictated by: Ronen Avila M.D. on 04/23/2018 at 12:34 Approved by: Ronen Avila M.D. on 04/23/2018 at 12:41
--- NOTE | 2018-04-23 00:49 | PC.NURSE ---
Patient has been resting quietly in bed since start of shift. Entered room twice with hourly rounding - postponing assessment to allow him to rest.
[2018-04-23] MEDS: ACETAMINOPHEN 325 MG TABLET 650 MG PO (05:49)
[2018-04-23 06:16] LABS: INR 1.4 (0.9-1.3); Prothrombin Time 14.9 SECONDS (10.1-12.7)
[2018-04-23] MEDS: ASPIRIN EC 81 MG TABLET PO (08:13)
[2018-04-23] MEDS: DOCUSATE 100 MG CAPSULE PO (08:14)
[2018-04-23] MEDS: DRONEDARONE 400 MG TABLET PO ×2 (08:14→21:12)
[2018-04-23] MEDS: ATORVASTATIN 20 MG TABLET 40 MG PO (08:14)
[2018-04-23] MEDS: CYANOCOBALAMIN (VITAMIN B-12) 500 MCG TABLET 1000 MCG PO (08:14)
[2018-04-23] MEDS: glipiZIDE 5 MG TABLET 10 MG PO ×2 (08:15→21:13)
[2018-04-23] MEDS: GABAPENTIN 300 MG CAPSULE PO ×3 (08:15→21:12)
[2018-04-23] MEDS: DULOXETINE 30 MG CAPSULE 120 MG PO (08:15)
[2018-04-23] MEDS: ISOSORBIDE MONONITRATE ER 30 MG TABLET 60 MG PO (08:16)
[2018-04-23] MEDS: METOPROLOL ER 50 MG TABLET PO (08:16)
[2018-04-23] MEDS: SENNOSIDES 8.6 MG TABLET 17.2 MG PO ×2 (08:16→21:13)
[2018-04-23] MEDS: SODIUM CHLORIDE 0.9% FLUSH 10 ML IV ×2 (08:17→21:14)
[2018-04-23] MEDS: HYDROCODONE/ACET 10/325 TABLET 1 TAB PO ×2 (08:17→22:40)
[2018-04-23] MEDS: CYCLOBENZAPRINE 10 MG TABLET PO (08:17)
[2018-04-23 10:17] LABS: Vancomycin Trough 10.5 ug/mL (10-20)
[2018-04-23] MEDS: VANCOMYCIN 1,250 MG in SODIUM CHLORIDE 0.9% 250 ML IV (11:09)
[2018-04-23] MEDS: RANOLAZINE 500 MG TAB.ER.12H 1000 MG PO ×2 (11:27→21:14)
--- NOTE | 2018-04-23 11:49 | PM.PN.1 ---
Subjective Date Patient Seen: 04/23/18 Time Patient Seen: 11:30 Interval history: Patient still feels warm and sweaty intermittently. He is having some neck pain. He continued to have mild intermittent cough. No other complaints. Exam Vital Signs (past 8 hours): Vital Signs - 8 hr 04/23/18 04:10 04/23/18 08:00 04/23/18 08:16 Temperature 98.6 F 98.3 F Pulse Rate 63 64 70 Respiratory Rate 20 16 Blood Pressure 121/75 H 132/71 H 132/71 H Pulse Oximetry 94 95 04/23/18 09:13 04/23/18 09:23 Temperature Pulse Rate 76 Respiratory Rate Blood Pressure 109/63 Pulse Oximetry 97 Pulse Oximetry 97 Oxygen Delivery Method Room Air Oxygen Flow Rate 0 Narrative Exam Narrative: GENERAL: Middle aged man in no acute distress. NECK: Supple, no JVD, CHEST: Breath sounds equal bilaterally, no wheezes rales or rhonchi. CARDIAC: Regular rhythm, 2/6 systolic murmur best heard at the left sternal border, no rubs or gallops. ABDOMEN: Soft, nontender. Normoactive bowel sounds all 4 quadrants. No guarding or rebound. EXTREMITIES: Normal range of motion, no clubbing or edema. NEUROLOGICAL: Alert and oriented; Normal muscle strength. SKIN: Warm, dry, no petechiae, no rashes or lesions. Objective Imaging Echocardiogram: Radiologist's impression: Normal left ventricle size with ejection fraction 60-65%. Moderately dilated left atrium. Mildly dilated right atrium. Moderate mitral annular calcification. The bioprosthetic aortic valve is well-seated. Mildly enlarged ascending aorta. Labs Result Diagrams: 04/22/18 06:30 04/22/18 06:30 Labs: Laboratory Results - last 24 hr 04/23/18 04/23/18 05:57 09:26 PT 14.9 H D INR 1.4 H Vancomycin Trough 10.5 Assessment & Plan Plan: Assessment/Plan Narrative: 1. 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 Repeat blood culture on April 22, 2018 are negative. Transthoracic echo was negative for vegetations. The mechanical aortic valve seemed to be seated properly on the transthoracic echo. I have talked to Dr. Mallory with Infectious Disease. We are going to change his antibiotics to nafcillin 2 g IV q.4 hours for treating MSSA endocarditis. The plan is to treat him for 6 weeks. I have also contacted Cardiology regarding to transesophageal echo. We will try to arrange for transesophageal echo prior to his hospital discharge if possible at [facility]. We will also place a PICC line today for anticipated IV antibiotics treatment. I have also contacted residential case manager regarding to discharge planning an anticipated home IV infusion. 2. Sepsis secondary to the probable recurrent endocarditis: He had fever up to 103, leukocytosis, tachycardia, and confusion on admission. Sepsis has resolved. We will continue treating the underlying cause. 3. Chronic atrial fibrillation and history of mechanical aortic valve replacement: Continue Dronedarone . Continue Coumadin for anticoagulation. INR was 1.4 today. We will cover with therapeutic dose of Lovenox today. Continue follow his INR. Discontinue Lovenox when INR is therapeutic. 4. Type 2 diabetes: Continue glipizide per outpatient dosing. Glucose is much better controlled after he was restarted on glipizide. Continue monitor his fingerstick glucose readings 5. Coronary artery disease: Continue outpatient medications with metoprolol, Imdur, and Ranodazine. Clinically stable without signs of acute exacerbation. 6. Chronic low back pain: Continue gabapentin and [place] per outpatient dosing. Continue cyclobenzaprine as needed 7. Hyperlipidemia: Continue atorvastatin 8. Code status: Do not resuscitate. Code status was discussed with patient himself. 9. Disposition: Discharge home with home IV infusion in 1-2 days. Quality VTE Deep Vein Thrombosis/Pulmonary Embolism Present on Admission: No
--- NOTE | 2018-04-23 11:52 | P.PN_ITS ---
Subjective Date Patient Seen: 04/23/18 Time Patient Seen: 11:30 Interval history: Patient still feels warm and sweaty intermittently. He is having some neck pain. He continued to have mild intermittent cough. No other complaints. Exam Vital Signs (past 8 hours): Vital Signs - 8 hr 3 04/23/18 04:10 04/23/18 08:00 04/23/18 08:16 Temperature 98.6 F 98.3 F Pulse Rate 63 64 70 Respiratory Rate 20 16 Blood Pressure 121/75 H 132/71 H 132/71 H Pulse Oximetry 94 95 3 04/23/18 09:13 04/23/18 09:23 Temperature Pulse Rate 76 Respiratory Rate Blood Pressure 109/63 Pulse Oximetry 97 Pulse Oximetry 97 Oxygen Delivery Method Room Air Oxygen Flow Rate 0 Narrative Exam Narrative: GENERAL: Middle aged man in no acute distress. NECK: Supple, no JVD, CHEST: Breath sounds equal bilaterally, no wheezes rales or rhonchi. CARDIAC: Regular rhythm, 2/6 systolic murmur best heard at the left sternal border, no rubs or gallops. ABDOMEN: Soft, nontender. Normoactive bowel sounds all 4 quadrants. No guarding or rebound. EXTREMITIES: Normal range of motion, no clubbing or edema. NEUROLOGICAL: Alert and oriented; Normal muscle strength. SKIN: Warm, dry, no petechiae, no rashes or lesions. Objective Imaging Echocardiogram: Radiologist's impression: Normal left ventricle size with ejection fraction 60-65%. Moderately dilated left atrium. Mildly dilated right atrium. Moderate mitral annular calcification. The bioprosthetic aortic valve is well-seated. Mildly enlarged ascending aorta. Labs Result Diagrams: 04/22/18 06:30 04/22/18 06:30 Labs: Laboratory Results - last 24 hr 04/23/18 04/23/18 05:57 09:26 PT 14.9 H D INR 1.4 H Vancomycin Trough 10.5 Assessment & Plan Plan: Assessment/Plan Narrative: 1. 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 Repeat blood culture on April 22, 2018 are negative. Transthoracic echo was negative for vegetations. The mechanical aortic valve seemed to be seated properly on the transthoracic echo. I have talked to Dr. Mallory with Infectious Disease. We are going to change his antibiotics to nafcillin 2 g IV q.4 hours for treating MSSA endocarditis. The plan is to treat him for 6 weeks. I have also contacted Cardiology regarding to transesophageal echo. We will try to arrange for transesophageal echo prior to his hospital discharge if possible at . We will also place a PICC line today for anticipated IV antibiotics treatment. I have also contacted window caser regarding to discharge planning an anticipated home IV infusion. 2. Sepsis secondary to the probable recurrent endocarditis: He had fever up to 103, leukocytosis, tachycardia, and confusion on admission. Sepsis has resolved. We will continue treating the underlying cause. 3. Chronic atrial fibrillation and history of mechanical aortic valve replacement: Continue Dronedarone . Continue Coumadin for anticoagulation. INR was 1.4 today. We will cover with therapeutic dose of Lovenox today. Continue follow his INR. Discontinue Lovenox when INR is therapeutic. 4. Type 2 diabetes: Continue glipizide per outpatient dosing. Glucose is much better controlled after he was restarted on glipizide. Continue monitor his fingerstick glucose readings 5. Coronary artery disease: Continue outpatient medications with metoprolol, Imdur, and Ranodazine. Clinically stable without signs of acute exacerbation. 6. Chronic low back pain: Continue gabapentin and [place] per outpatient dosing. Continue cyclobenzaprine as needed 7. Hyperlipidemia: Continue atorvastatin 8. Code status: Do not resuscitate. Code status was discussed with patient himself. 9. Disposition: Discharge home with home IV infusion in 1-2 days. Quality VTE Deep Vein Thrombosis/Pulmonary Embolism Present on Admission: No
--- NOTE | 2018-04-23 13:13 | CM.DPC ---
Addendum entered by JASVIR Cole 04/23/18 15:29: ADD: SW called [facility] in [place] with possible new referral and intake staff stated that both Medicare and [employer] do not cover Home Infusion and that pt would likely need to go to the closest infusion clinic called [facility] [place] ([phone]). Although pt likely will require multiple times a day dosing and this might not be reasonable option. SW spoke to Simon with [facility] and he stated that his experience is that [employer] will mushroom picker 75% of the cost of home infusion since Medicare does not cover any. SW will need to follow up on this with [place] [facility] companies tomorrow. SW met bedside with pt and spouse and updated on above information and they also recommended SW to call the [facility] with [facility] at [phone] to determine if they have any resources or ideas. Too late in the day for SW to call today and will need to try tomorrow. Plan: SW to continue coordinating with MD regarding medication and dosing to determine if pt can go to the Infusion Clinic vs Home Infusion vs possible SNF? SW to confirm tomorrow if [facility] will cover 75% of Home Infusion and call pt's [facility] RN at above listed number. JASVIR Cole Original Note: DCP Home with Home Infusion Planning Per MD, pt will need 6-8 weeks of IV-Abx at d/c and medication and dosing changing and will be more than once a day dosing. Pt to have Echo tomorrow at 1300 so likely not ready for d/c until Saturday. SW met bedside with pt and spouse and explained role and pt and spouse confirmed that they were planning to return home to [place] at d/c and do not feel that they can stay locally for the duration of the needed IV-Abx. SW discussed possible options, including SNF rehab for IV-Abx and the barriers of finding an Infusion Company in [place] and medication needs during travel back to [place]. Spouse states that the trip would likely take 5-7 hours dependent on traffic. Discussed the need to determine medication and dosing to determine if pt could safely get his dose of medication here right before discharge and wait for next dose until he is home. Pt and spouse understanding and agreeable with SW researching Home Infusion companies near their home in [place]. Plan: SW to follow for researching Home Infusion Companies by [facility] and waiting to determine medication and dosing. Pt lives in [place] and some barriers to discharge straight home but could be likely. JASVIR Cole
[2018-04-23] MEDS: NAFCILLIN 2 GM in SODIUM CHLORIDE 0.9% 100 ML 200 ML IV ×3 (14:10→21:11)
[2018-04-23] MEDS: ENOXAPARIN 100 MG/ML SYRINGE SUBCUT (14:10)
--- NOTE | 2018-04-23 15:41 | DI.RAD.S_ITS ---
PROCEDURE: XR CHEST FOR PICC 1V INDICATIONS: 68-year-old male with PICC placement. TECHNIQUE: One view of the chest was acquired. COMPARISON: [facility], , XR CHEST 2V, 04/20/2018, 20:39. FINDINGS: Surgical changes and devices: New left PICC is present, with tip in the upper superior vena cava. Patient is status post coronary artery bypass grafting. Lungs and pleura: No pleural effusions or pneumothorax. Lungs are clear. Mediastinum: Mediastinal contours appear normal. Heart size is normal. There is aortic atherosclerosis. Bones and chest wall: No suspicious bony lesions. Overlying soft tissues appear unremarkable. IMPRESSION: New left PICC is present, with tip in expected position in the upper superior vena cava. Dictated by: Ronen Avila M.D. on 04/23/2018 at 16:01 Approved by: Ronen Avila M.D. on 04/23/2018 at 16:02
[2018-04-23] MEDS: WARFARIN 5 MG TABLET PO (17:07)
--- NOTE | 2018-04-23 17:21 | PT.IIE ---
Current Diagnoses Sepsis, unspecified organism (04/20/18) Surgical History (Last Updated 04/20/18 @ 22:55 by Dalia William RN) H/O aortic valve replacement (Acute) History of partial knee replacement (Acute) Hx of exploratory laparotomy (Acute) S/P TURP (Acute) Medical History (Last Reviewed 04/21/18 @ 10:41 by Delphine Dhaliwal MD) Atrial fibrillation (Acute) Boxer's fracture (Acute) Diabetes (Acute) HTN (hypertension) (Acute) History of IBS (Acute) Prostate CA (Acute) Renal cancer (Acute) S/p nephrectomy (Acute) Physical Therapy Inpatient Evaluation/Re-Eval M1 PT/OT-IP Prior Functional Status Start: 04/23/18 17:10 Freq: NEEDED Status: Active Protocol: Document 04/23/18 17:11 AB (Rec: 04/23/18 17:21 AB [id number]) Medical Review Prior Functional Status Medical History Reviewed Yes Mobility and Gait pt stated that he is independent with all mobilities and ambulation without AD Social History Household Members spouse Living Arrangements House Number of Stairs To Enter/Railing? 6 steps to enter with L rail ascending; 2 steps up to living room with 2 hand holds on R Employment Status Retired Additional Social History Comment pt lives in [place] and plans to go back to [place] upon d/c. M2 PT-IP Current Condition Start: 04/23/18 17:10 Freq: NEEDED Status: Active Protocol: Document 04/23/18 17:11 AB (Rec: 04/23/18 17:21 AB [id number]) Physical Therapy Current Condition Current Condition Evaluation Date 04/23/18 Treatment Diagnosis sepsis; PNA; difficulty in walking Onset Date 04/20/18 Precautions Other Precautions Contact precautions: MRSA: blood M3 PT-IP Subjective Start: 04/23/18 17:10 Freq: NEEDED Status: Active Protocol: Document 04/23/18 17:11 AB (Rec: 04/23/18 17:21 AB [id number]) Subjective Physical Therapy Visit Type Type Initial Evaluation Visit Start Time 15:45 Visit Stop Time 16:21 Total Visit Minutes 36 Number of TRAINING OFFICER Visits 0 Physical Therapy Visit Comments Patient Comments pt agreeable to do therapy Therapy Pain Assessment Pain When Pain Assessed At Rest Location Left Calf Intensity 8 Scale Used Numeric (1 - 10) Neck Intensity 8 Scale Used Numeric (1 - 10) M4 PT-IP Mobility and Gait Start: 04/23/18 17:10 Freq: NEEDED Status: Active Protocol: Document 04/23/18 17:11 AB (Rec: 04/23/18 17:21 AB [id number]) PT-Bed Mobility Assessment Supine to Sit Supine to Sit Standby Assistance Sit to Supine Sit to Supine Contact Guard Assistance PT-Transfer Assessment Sit to and From Stand Sit to and from Stand Minimal Assistance Equipment Transfer Assistive Device Gait Belt Front Wheeled Walker Gait Assessment Gait Gait Assistance Required: Minimum Assistance Distance (Feet) (feet) 30 Able to Maintain Weight Bearing Status Yes During Gait Assistive Devices Assistive Device Gait Belt Front Wheeled Walker Orthotic/Prosthetic Devices or Brace: No Gait Deviations General Gait Pattern Antalgic Decreased Stride Length Decreased Feet Clearance Factors Limiting Gait Function Factors Limiting Gait Function Decreased Activity Tolerance Decreased Strength Pain Poor Balance PT-Balance Assessment Sitting Balance and Reactions Static Sitting Balance Ability Good Dynamic Sitting Balance Ability Good Standing Balance and Reactions Static Standing Balance Ability Fair Dynamic Standing Balance Ability Fair M5 PT-IP Objective Assessments Start: 04/23/18 17:10 Freq: NEEDED Status: Active Protocol: Document 04/23/18 17:11 AB (Rec: 04/23/18 17:21 AB [id number]) Orientation Orientation/Cognition Level of Alertness Alert Strength Lower Extremity Strength Assessment Bilaterally Impaired Comments Strength Comments LLE: 4-/5 weaker than RLE 4/5 M6 PT-IP Treatment Start: 04/23/18 17:10 Freq: NEEDED Status: Active Protocol: Document 04/23/18 17:11 AB (Rec: 04/23/18 17:21 AB [id number]) Physical Therapy Treatment Education Education Provided Safety M7 PT-IP Assessment and Plan Start: 04/23/18 17:10 Freq: NEEDED Status: Active Protocol: Document 04/23/18 17:11 AB (Rec: 04/23/18 17:21 AB [id number]) PT Summary Assessment and Plan Potential Rehabilitation Potential Fair Status of Condition at Evaluation Evolving Summary Impairments Pain ROM Strength Balance Bed Mobility Transfers Gait Activity Tolerance Assessment Summary pt requires one person assist with mobility and presents with decrease activity tolerance. pt's spouse will assist pt at home. Goals Bed Mobility Goal Standby Assistance Transfer Goal Standby Assistance Gait Goal Standby Assistance Gait Distance 100 Other Goals up/down 6 steps with L rail; 2 steps with R rail Days to Meet Goals 3 Frequency of Treatment Frequency Of Treatment Once a Day Treatment Plan Physical Therapy Treatment Plan Bed Mobility Training Transfer Training Gait Training Therapeutic Exercise Balance Retraining Discharge Planning Neuromuscular Re-ed Recommendations To Nursing Amount of Assist Needed 1 Person Assist Discharge Recommendations PT Discharge Recommendations Home with 03/06 Assist Home Health Equipment Needed for Home Before FWW Discharge Provider Visit Care Team Role Provider Type George Joyner DO Emergency Provider Physician Specialty: Emergency Medicine Sen Lancaster MD Admit Provider Physician Attending Provider Other Providers Specialty: Internal Medicine
[2018-04-24] VITALS (11 sets, daily range): BP systolic 112–151; BP diastolic 61–87; PULSE 60–70; RESP 18; TEMP 36.6–37.2; O2SAT 93–98
[2018-04-24] MEDS: NAFCILLIN 2 GM in SODIUM CHLORIDE 0.9% 100 ML 200 ML IV ×5 (00:38→20:24)
[2018-04-24] MEDS: ENOXAPARIN 100 MG/ML SYRINGE SUBCUT ×2 (00:39→16:08)
--- NOTE | 2018-04-24 03:56 | PC.NURSE ---
NPO after MN, documented intake he took before midnight. Pt. sound asleep at this time, will monitor.
[2018-04-24] MEDS: SODIUM CHLORIDE 0.9% FLUSH 10 ML IV ×4 (04:19→20:25)
[2018-04-24 06:14] LABS: Add Manual Diff / Slide Review NO; Basophils Percent Auto 0.7 % (0-2); Eosinophils Percent Auto 1.6 % (2-4); Hematocrit 35.3 % (41-53); Hemoglobin 12.4 g/dL (13.5-17.5); Lymphocytes Percent Auto 24.3 % (25-40); Mean Corpuscular HGB Conc 35.2 % (30-36); Mean Corpuscular Hemoglobin 33.2 PG (26-34); Mean Corpuscular Volume 94.5 fL (80-100); Monocytes Percent Auto 10.3 % (3-14); Neutrophils Absolute Auto 2900 /uL (3000-5900); Neutrophils Percent Auto 63.1 % (50-75); Platelet Count 162 X10^3/uL (150-400); Red Blood Cell Count 3.73 X10^6/uL (4.5-5.9); Red Cell Distribution Width 12.7 % (11.6-14.8); White Blood Cell Count 4.6 X10^3/uL (4.5-11.0)
[2018-04-24 06:15] LABS: INR 1.6 (0.9-1.3); Prothrombin Time 17.7 SECONDS (10.1-12.7)
[2018-04-24 06:18] LABS: BUN Creatinine Ratio 24.4 (6-22); Blood Urea Nitrogen 22 mg/dL (9-20); Calcium 8.5 mg/dL (8.4-10.2); Carbon Dioxide 24 mmol/L (22-32); Chloride 106 mmol/L (98-107); Estimated Glomerular Filt Rate > 60.0 mL/min (>60); Glucose 123 mg/dL (80-110); HEMOLYSIS < 15 (0-50); Potassium 3.9 mmol/L (3.4-5.1); Sodium 140 mmol/L (137-145)
[2018-04-24] MEDS: ISOSORBIDE MONONITRATE ER 30 MG TABLET 60 MG PO (09:40)
[2018-04-24] MEDS: DRONEDARONE 400 MG TABLET PO ×2 (09:40→20:24)
[2018-04-24] MEDS: ACETAMINOPHEN 325 MG TABLET 650 MG PO (09:41)
[2018-04-24] MEDS: METOPROLOL ER 50 MG TABLET PO (09:41)
[2018-04-24] MEDS: RANOLAZINE 500 MG TAB.ER.12H 1000 MG PO ×2 (09:41→20:25)
--- NOTE | 2018-04-24 11:16 | PT.OTN ---
Current Diagnoses Sepsis, unspecified organism (04/20/18) Please Sign and Return: I have reviewed this Plan of Care and certify that the skilled therapy services above are required to meet the patient?s needs. Physician Signature Date Printed Name and Credentials Clinical Instructor Signature Printed Name and Credentials
--- NOTE | 2018-04-24 12:14 | PM.PN.1 ---
Subjective Date Patient Seen: 04/24/18 Time Patient Seen: 10:50 Interval history: The patient reports feeling better, with improved energy. He was able to get up and walk in the [place] with physical therapy. Exam Vital Signs (past 8 hours): Vital Signs - 8 hr 04/24/18 05:15 04/24/18 09:03 Temperature 98.4 F 97.8 F Pulse Rate 61 60 Respiratory Rate 18 18 Blood Pressure 123/69 H 141/81 H Pulse Oximetry 97 97 Pulse Oximetry 97 Oxygen Delivery Method Room Air Oxygen Flow Rate 2 Narrative Exam Narrative: GENERAL: Middle aged man in no acute distress, sitting at edge of bed with physical therapy, oxygen saturation 97% after walking. NECK: Supple, no JVD. CHEST: Breath sounds equal bilaterally, no wheezes rales or rhonchi. CARDIAC: Regular rhythm, 2/6 systolic murmur best heard at the left sternal border, no rubs or gallops. ABDOMEN: Soft, nontender, nondistended. EXTREMITIES: Normal range of motion, no clubbing or edema. NEUROLOGICAL: Alert and oriented; Normal muscle strength. SKIN: Warm, dry, no petechiae, no rashes or lesions. Objective Labs Result Diagrams: 04/24/18 05:40 04/24/18 05:40 Labs: Laboratory Results - last 24 hr 04/24/18 04/24/18 04/24/18 05:40 05:40 05:40 WBC 4.6 RBC 3.73 L Hgb 12.4 L Hct 35.3 L MCV 94.5 MCH 33.2 MCHC 35.2 RDW 12.7 Plt Count 162 Neut % (Auto) 63.1 D Lymph % (Auto) 24.3 L Murray % (Auto) 10.3 Eos % (Auto) 1.6 L Baso % (Auto) 0.7 Neut # (Auto) 2900 L PT 17.7 H INR 1.6 H Sodium 140 Potassium 3.9 Chloride 106 Carbon Dioxide 24 BUN 22 H Creatinine 0.90 Estimated GFR > 60.0 BUN/Creatinine Ratio 24.4 H Glucose 123 H Calcium 8.5 Assessment & Plan Plan: Assessment/Plan Narrative: 1. 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 Repeat blood culture on April 22, 2018 are negative. Transthoracic echo was negative for vegetations. The mechanical aortic valve seemed to be seated properly on the transthoracic echo. Dr. Mallory with Infectious Disease recommends nafcillin 2 g IV q.4 hours for treating MSSA endocarditis for 6 weeks. Plan for transesophageal echo prior to his hospital discharge if possible at [facility]. PICC line placed 04/23/2018 for anticipated IV antibiotics treatment with arrangements per telephonic nurse case manager regarding discharge planning and anticipated home IV infusion. 2. Sepsis secondary to the probable recurrent endocarditis: He had fever up to 103, leukocytosis, tachycardia, and confusion on admission. Sepsis has resolved. We will continue treating the underlying cause. 3. Chronic atrial fibrillation and history of mechanical aortic valve replacement: Continue Dronedarone . Continue Coumadin for anticoagulation. INR was 1.6 today. We will cover with therapeutic dose of Lovenox today. Continue follow his INR. Discontinue Lovenox when INR is therapeutic. 4. Type 2 diabetes: Continue glipizide per outpatient dosing. Glucose is much better controlled after he was restarted on glipizide. Continue monitor his fingerstick glucose readings 5. Coronary artery disease: Continue outpatient medications with metoprolol, Imdur, and Ranodazine. Clinically stable without signs of acute exacerbation. 6. Chronic low back pain: Continue gabapentin and [place] per outpatient dosing. Continue cyclobenzaprine as needed 7. Hyperlipidemia: Continue atorvastatin. 8. Code status: Do not resuscitate. Code status was discussed with patient on admission. 9. Disposition: Discharge home with home IV infusion in 1-2 days. Quality VTE Deep Vein Thrombosis/Pulmonary Embolism Present on Admission: No
--- NOTE | 2018-04-24 13:42 | PT.IPTN ---
Current Diagnoses Sepsis, unspecified organism (04/20/18) Physical Therapy Treatment Note M2 PT-IP Current Condition Start: 04/23/18 17:10 Freq: NEEDED Status: Active Protocol: Document 04/23/18 17:11 AB (Rec: 04/23/18 17:21 AB [id number]) Physical Therapy Current Condition Current Condition Evaluation Date 04/23/18 Treatment Diagnosis sepsis; PNA; difficulty in walking Onset Date 04/20/18 Precautions Other Precautions Contact precautions: MRSA: blood M3 PT-IP Subjective Start: 04/23/18 17:10 Freq: NEEDED Status: Active Protocol: Document 04/24/18 11:08 EA (Rec: 04/24/18 11:16 EA [id number]) Subjective Physical Therapy Visit Type Type Treatment Note Visit Start Time 10:35 Visit Stop Time 11:15 Total Visit Minutes 40 Physical Therapy Visit Comments Patient Comments Patient reports he is going to out for special test; states still have difficulty with wlaking due to fatigue. M4 PT-IP Mobility and Gait Start: 04/23/18 17:10 Freq: NEEDED Status: Active Protocol: Document 04/24/18 11:08 EA (Rec: 04/24/18 11:16 EA [id number]) PT-Bed Mobility Assessment Rolling Level of Assist Standby Assistance Supine to Sit Supine to Sit Standby Assistance Sit to Supine Sit to Supine Standby Assistance Scooting Scooting to Edge of Bed Standby Assistance PT-Transfer Assessment Sit to and From Stand Sit to and from Stand Standby Assistance Equipment Transfer Assistive Device Front Wheeled Walker Transfers Transfer Technique stepping Transfer Ability Level of Assist Standby Assistance Gait Assessment Gait Gait Assistance Required: Standby Assistance Distance (Feet) (feet) 70 Able to Maintain Weight Bearing Status Yes During Gait Assistive Devices Assistive Device Front Wheeled Walker Gait Deviations General Gait Pattern Antalgic Factors Limiting Gait Function Factors Limiting Gait Function Pain Comments Gait Comments Moderate antalgic gait initially progress to near normal gait after 50 ft. Stair Climbing Assessment Evaluation Level of Assist On Stairs Standby Assistance Devices Stair Climbing Assistive Devices Left Railing Right Railing Technique/Endurance Stair Climbing Direction Ascend and Descend Stair Climbing Technique Step Over Step Number of Steps Climbed 3 Query Text: PT-Balance Assessment Sitting Balance and Reactions Static Sitting Balance Ability Normal Dynamic Sitting Balance Ability Normal Standing Balance and Reactions Static Standing Balance Ability Normal Dynamic Standing Balance Ability Good M5 PT-IP Objective Assessments Start: 04/23/18 17:10 Freq: NEEDED Status: Active Protocol: Document 04/23/18 17:11 AB (Rec: 04/23/18 17:21 AB [id number]) Orientation Orientation/Cognition Level of Alertness Alert Strength Lower Extremity Strength Assessment Bilaterally Impaired Comments Strength Comments LLE: 4-/5 weaker than RLE 4/5 M6 PT-IP Treatment Start: 04/23/18 17:10 Freq: NEEDED Status: Active Protocol: Document 04/24/18 11:08 EA (Rec: 04/24/18 11:16 EA [id number]) Physical Therapy Treatment Exercises Exercises Ankle Pumps M7 PT-IP Assessment and Plan Start: 04/23/18 17:10 Freq: NEEDED Status: Active Protocol: Document 04/24/18 11:08 EA (Rec: 04/24/18 11:16 EA [id number]) PT Summary Assessment and Plan Potential Rehabilitation Potential Good Summary Impairments Pain Strength Gait Activity Tolerance Progress Towards Goals Progressing Toward Goals Assessment Summary Patient is progressing slowly towards goals. Patient still requires SBA for transfers and mobility. Patient will continue to benefit with current program Goals Bed Mobility Goal Independent Transfer Goal Independent Gait Goal Standby Assistance Gait Distance 100 ft Frequency of Treatment Frequency Of Treatment Once a Day Treatment Plan Physical Therapy Treatment Plan Transfer Training Gait Training
--- NOTE | 2018-04-24 14:57 | PC.NURSE ---
pt picked up by [facility] transport at 1130 to be taken to [facility] for YASMINE. Per report, pt received 1 mg dilaudid just prior to arrival at [facility]. Uneventful YASMINE, received 2mg versed. returned around 1450. family present in room. pt would like to eat food. ok to restart diet per Dr Bhatti.
--- NOTE | 2018-04-24 15:24 | CM.DPC ---
DCP Cont: Working on coordination of home infusion. Spoke w/pt's spouse Janett this morning; pt/spouse's family have offered a room for pt/spouse to stay in while pt completes his abx course. Janett requests this OPERATING ROOM RN get quote for out of pocket expense IF covers home infusion. Janett prefers to take pt home w/home infusion but pt/spouse will consider SNF stay if Home infusion too expensive. Spoke w/Simon at [facility]; gave some addtl information and awaiting CB re out of pocket expense? Pt will need a [facility] Doctor to follow for any addtl orders needed for the infusion co. once DC. This OPERATING ROOM RN will review this concern w/Dr Riley. JASVIR Sheriff
--- NOTE | 2018-04-24 16:05 | OT.IP.TRT ---
Current Diagnoses Sepsis, unspecified organism (04/20/18) Occupational Therapy Treatment Note M3 OT- IP Subjective and Pain Start: 04/24/18 16:03 Freq: Status: Active Protocol: Document 04/24/18 16:03 KALEB (Rec: 04/24/18 16:05 KALEB [id number]) OT- Subjective Occupational Therapy Visit Type Type Administrative Note Visit Start Time 10:00 Notes OT referral received on this 68 yr old male admitted with recurrent endocarditis. Chart screened and brief ADL interview completed with pt/ . No OT goals identified for this admission. D/C OT. No charge.
[2018-04-24] MEDS: SODIUM CHLORIDE 0.9% 250 ML 21 ML IV (16:08)
[2018-04-24] MEDS: ASPIRIN EC 81 MG TABLET PO (16:09)
[2018-04-24] MEDS: GABAPENTIN 300 MG CAPSULE PO ×2 (16:09→20:25)
[2018-04-24] MEDS: DOCUSATE 100 MG CAPSULE PO (16:09)
[2018-04-24] MEDS: DULOXETINE 30 MG CAPSULE 120 MG PO (16:09)
[2018-04-24] MEDS: CYANOCOBALAMIN (VITAMIN B-12) 500 MCG TABLET 1000 MCG PO (16:09)
[2018-04-24] MEDS: ATORVASTATIN 20 MG TABLET 40 MG PO (16:09)
[2018-04-24] MEDS: WARFARIN 5 MG TABLET PO (17:08)
[2018-04-24] MEDS: glipiZIDE 5 MG TABLET 10 MG PO (20:24)
[2018-04-24] MEDS: HYDROCODONE/ACET 10/325 TABLET 1 TAB PO (20:24)
[2018-04-25] VITALS (7 sets, daily range): BP systolic 121–156; BP diastolic 68–78; PULSE 54–64; RESP 16–18; TEMP 36.7–36.9; O2SAT 95–98
[2018-04-25] MEDS: SODIUM CHLORIDE 0.9% 250 ML 21 ML IV (01:21)
[2018-04-25] MEDS: NAFCILLIN 2 GM in SODIUM CHLORIDE 0.9% 100 ML 200 ML IV ×6 (01:21→19:24)
[2018-04-25] MEDS: HYDROCODONE/ACET 10/325 TABLET 1 TAB PO ×3 (04:36→16:19)
[2018-04-25 06:36] LABS: Prothrombin Time 21.2 SECONDS (10.1-12.7)
--- NOTE | 2018-04-25 06:51 | PC.NURSE ---
assumed care of pt from outgoing shift at 2300 6-14. Pt awake, compliant with nursing assessments and med passes. Pt denies pain. Pt uses call light. Pt voiding uses urinal. Pt pleasant and cooperative. 0600- labs drawn, no events through the night. will continue to monitor pt for safety. bed alarm on, side rails up x3.belongings and call light within reach.
[2018-04-25 08:04] LABS: Erythrocyte Sedimentation Rate 48 MM/HR (0-15)
[2018-04-25] MEDS: glipiZIDE 5 MG TABLET 10 MG PO (08:34)
[2018-04-25] MEDS: CYANOCOBALAMIN (VITAMIN B-12) 500 MCG TABLET 1000 MCG PO (08:35)
[2018-04-25] MEDS: ISOSORBIDE MONONITRATE ER 30 MG TABLET 60 MG PO (08:35)
[2018-04-25] MEDS: ASPIRIN EC 81 MG TABLET PO (08:35)
[2018-04-25] MEDS: GABAPENTIN 300 MG CAPSULE PO ×2 (08:35→16:19)
[2018-04-25] MEDS: SENNOSIDES 8.6 MG TABLET 17.2 MG PO (08:35)
[2018-04-25] MEDS: METOPROLOL ER 50 MG TABLET PO (08:35)
[2018-04-25] MEDS: ATORVASTATIN 20 MG TABLET 40 MG PO (08:35)
[2018-04-25] MEDS: DULOXETINE 30 MG CAPSULE 120 MG PO (08:35)
[2018-04-25] MEDS: DOCUSATE 100 MG CAPSULE PO (08:35)
[2018-04-25] MEDS: DRONEDARONE 400 MG TABLET PO (08:35)
--- NOTE | 2018-04-25 08:38 | PM.DS.1 ---
History of Present Illness Date Patient Seen: 04/25/18 Time Patient Seen: 08:38 Chief complaint: Sepsis / Pneumonia Narrative: 68-year-old man with history of aortic valve replacement and recurrent endocarditis who was brought to the [facility] Emergency room on the April for fever. He and his are visiting their daughter from [place]. He woke up yesterday morning feeling aching all over his body. Subsequently he started having fever. His temperature went up to 103. He has some mild chronic cough, however the cough has not gotten worse lately. He has some right calf pain. He was noted to have elevated white blood cell count. His blood culture 4 bottles were positive for Staph aureus. Chest x-ray showed possible retrocardiac infiltrate. He received IV Levaquin and ceftriaxone at the emergency room. He was admitted to the medicine floor for possible pneumonia. His family feels his mental status has significantly improved overnight. Discharge Providers Date of admission: 04/20/18 22:22 Consults: 04/20/18 22:13 Consult to Physician Routine Comment: Consulting Provider: Sen Lancaster Reason for consultation: Admission Has provider been notified: Yes 04/23/18 11:32 Consult to PICC Line RN Routine Comment: 04/23/18 12:38 Consult to Physical Therapy Evaluate & Treat Comment: d/c needs Physician Instructions: Evaluate and Treat 04/23/18 12:39 Consult to Occupational Therapy Evaluate & Treat Comment: Physician Instructions: d/c needs Discharge provider: GARRETT Botlelo Summary Discharge Diagnosis: 1. 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 Chronic atrial fibrillation 3. Type 2 diabetes 4. Coronary artery disease 5. Hyperlipidemia Hospital Course: This serves as a five-day summary note for discharge this 68-year-old patient who is vacationing in this area was admitted with probable bacterial endocarditis, who also has a bioprosthetic aortic heart valve. Originally seen in emergency room he presented with a white count of 13.6, fever of 101.8?, respiratory rate in the 20s. Patient was originally treated with IV Levaquin and ceftriaxone in the emergency department. Patient does not meet the criteria for sepsis. Pneumonia was ruled out. Chest CT revealed no evidence for pneumonia. Once admitted to the [facility] the ceftriaxone was continued and vancomycin was added as well to cover possible MRSA infections. Blood cultures x2 reported to show MSSA and after conferring with Dr. Mallory, infectious disease specialist, patient was changed to nafcillin 2 g q.4 hours IV. Repeat blood culture on 22 April 2018 are negative. A PICC line was inserted as this patient would probably need at least 4-6 weeks of continued IV therapy at home. A 2 dimensional transthoracic echocardiogram was performed which revealed normal left ventricular size with an ejection fraction of 60-65%, moderately dilated left atrium, mildly dilated right atrium, moderate mitral annular calcification. The aortic valve replacement as well seated and there is a mildly enlarged ascending aorta. Per previous progress note a YASMINE showed no vegetations or gross abnormalities. Case management and geriatric social worker have been attempting to find resolution to his antibiotic therapy outpatient management. Unfortunately, at this time his insurance will not cover the antibiotic to be necessary as the 1st choice for his endocarditis. At this point he would either have to pay [id number], be admitted to retirement facility, or return to his hometown and admitted to the [facility] there. The patient and his do not wish to pay [id number] her be admitted to retirement facility. Patient has agreed to be discharged and seek immediate help at his [facility] in his home area. He will need continued antibiotic therapy of his nafcillin 2 g q.4 hours IV. We will leave the PICC line in place for his therapy to be continued. Status at Discharge Functional status at discharge: independent ambulation Overall status at discharge: patient is back to baseline Time Spent with Patient Greater than 30 minutes Exam Vital Signs (past 8 hours): Vital Signs - 8 hr 04/25/18 01:01 04/25/18 06:36 Temperature 98.1 F Pulse Rate 64 Respiratory Rate 18 Blood Pressure 145/68 H Pulse Oximetry 98 Pulse Oximetry 98 Oxygen Delivery Method Room Air Oxygen Flow Rate 0 Narrative Exam Narrative: Const General: cooperative, healthy appearing and comfortable Nutritional Appearance: overweight Orientation: alert, awake and oriented x3 HENMT Head: normal to inspection, normocephalic and atraumatic Ears: hearing grossly normal bilaterally Nose: external nose normal Face and sinus: normal facial exam Mouth: oral mucosae normal Teeth and gingiva: other (Patient has had the majority of his teeth extracted.) Eyes General: appearance normal, both eyes and all related structures Pupils: PERRL and pupil size (2 mm) Neck Neck: normal visual inspection Other: No JVD, neck tenderness, lymphadenopathy. Chest Chest: normal inspection of the chest Resp Effort & Inspection: normal respiratory effort and able to speak in complete sentences Auscultation: clear to auscultation bilaterally Cardio Rate: regular rate Heart Sounds: S1 normal, S2 normal and murmur (2/6 systolic murmur best heard at the left sternal border. No rubs or gallops) GI Inspection: normal to inspection Palpation: soft Auscultation: normal bowel sounds Back/Spine/Pelvis Back: normal to inspection Cervical Spine: cervical ROM normal Other: Skin Other: Skin is warm and dry. He has several excoriated well-healed lesions on his lower extremities secondary to scratching his lower legs secondary to pruritus. Neuro General: alert, awake and oriented x3 Cognition: normal cognition Speech: speech normal Motor: muscle tone normal throughout Sensory Exam: no sensory deficits noted Other: No nuchal rigidity Extrem General: normal to inspection, full ROM, capillary refill normal, no pedal edema and no calf tenderness Psych Appearance: grossly normal Speech and Movement: speech and movement normal Mood: congruent mood Affect: normal affect Attitude: cooperative Thought Process: normal Thought Content: normal Judgment: judgment good Objective Labs Result Diagrams: 04/24/18 05:40 04/24/18 05:40 Labs: Laboratory Results - last 24 hr 04/25/1818 18 06:15 06:15 06:15 ESR 48 H PT 21.2 H INR 2.0 H C-Reactive Protein 4.0 H Echocardiogram Report + + :Name: OLINDA AGUILA Study Date: 04/21/2018 Height: 70 in : :[facility] Weight: 222 lb : : Gender: Male BSA: 2.2 m2 : :: 1950 Age: 68 yrs BP: 132/64 mmHg: :Reason For Study: Aortic valve replacement - bioprosthetic : : Performed By: Julienne Gregg : :Referring: AL ABRAHAM : + + Interpretation Summary Normal left ventricle size with ejection fraction 60-65%. Moderately dilated left atrium. Mildly dilated right atrium. Moderate mitral annular calcification. The bioprosthetic aortic valve is well-seated. Mildly enlarged ascending aorta. Procedure: A two-dimensional transthoracic echocardiogram with color flow and Doppler was performed. The study quality was technically adequate. There is no prior echocardiogram noted for this patient. The patient was in normal sinus rhythm during the exam. Left Ventricle: The left ventricle is normal in size. There is normal left ventricular wall thickness. The ejection fraction is estimated to be 60-65%. There are no focal wall motion abnormalities. Assessment of diastolic parameters indicates normal left ventricular diastolic function and normal filling pressures. Right Ventricle: The right ventricle grossly appears normal in size with probable normal systolic function. Atria: The left atrium is moderately dilated. The right atrium is mildly dilated. The interatrial septum is intact with no evidence for an atrial septal defect. Mitral Valve: The mitral valve leaflets appear mildly thickened, but open well. There is moderate mitral annular calcification. There is no mitral regurgitation noted. Aortic Valve: There is a porcine aortic valve. The prosthetic aortic valve is well-seated. There is trace aortic regurgitation. Tricuspid Valve: The tricuspid valve leaflets are thin and pliable. There is mild tricuspid regurgitation. The right ventricular systolic pressure is estimated at 34 mmHg assuming a right atrial pressure of 3 mm Hg. Pulmonic Valve: The pulmonic valve is normal in structure and function. There is trace pulmonic regurgitation. Great Vessels: The aortic root is normal size. The ascending aorta is mildly enlarged. The IVC is of normal diameter and collapses greater than 50% with a sniff. This suggests a low right atrial pressure of 3 mm Hg. Pericardium/ Pleura There is no pericardial effusion. There is no pleural effusion. MMode/2D Measurements & Calculations LVIDd: 5.3 cm LVOT diam: 2.3 cm LVIDs: 3.3 cm Ao root diam: 3.1 cm FS: 38.1 % Aortic Jxn: 2.0 cm EPSS: 0.66 cm asc Aorta Diam: 3.7 cm IVSd: 0.99 cm Ao Arch Diam (Prox Trans): 3.2 cm LVPWd: 1.0 cm LV mann. diameter/BSA (cm/m^2): 2.4 LV sys. diameter/BSA (cm/m^2): 1.5 LA dimension: 4.8 cm RA long axis: 5.5 cm LA A2 area: 33.0 cm2 RA area: 24.4 cm2 LA A4 area: 28.1 cm2 RA vol: 92.8 ml LA length (vol): 6.1 cm RA : 42.5 ml/m2 LA vol: 128.5 ml IVC diam: 1.4 cm LA vol index: 58.9 ml/m2 RVDd major: 6.1 cm RVD1 (basal): 4.3 cm RVD2 (mid): 3.8 cm Doppler Measurements & Calculations Ao V2 max: 281.4 cm/sec LVOT Max Ky: 94.4 cm/sec Ao V2 mean: 172.7 cm/sec LV V1 max P.6 mmHg Ao max P.7 mmHg LV V1 VTI: 26.2 cm Ao mean P.0 mmHg ANGI(I,D): 1.8 cm2 Ao V2 VTI: 60.0 cm ANGI(V,D): 1.4 cm2 sev ratio: 0.44 ANGI indexed to BSA (cm^2/m^2): 0.84 AI P1/2t: 478.6 msec AI dec slope: 272.0 cm/sec2 MV E max ky: 127.9 cm/sec TR max ky: 280.1 cm/sec MV A max ky: 105.0 cm/sec TR max P.4 mmHg MV E/A: 1.2 PA V2 max: 87.4 cm/sec Med Peak E' Ky: 7.9 cm/sec PA V2 mean: 58.8 cm/sec E/E' med: 16.2 PA mean P.6 mmHg Lat Peak E' Ky: 10.2 cm/sec PA Accel Time: 0.13 sec E/E' lat: 12.5 E/e' average: 14.4 MV dec time: 0.22 sec MV P1/2t: 67.2 msec MV P1/2t max ky: 128.9 cm/sec MVA(P1/2t): 3.3 cm2 Electronically signed by: Manpreet Slade on Reading Physician:04/21/2018 04:41 PM Discharge Plan Discharge Plan Patient Disposition: Home, Self-Care Discharge comment: Patient will need to be seen today at the [facility] near [place] home town for continuation of his antibiotic therapy.. Provider Discharge Instructions Diet: Carb-consistent/Diabetic Diet comment: Heart healthy/cardiac diet Activity: As tolerate. Patient may need walker initially for building muscle strength. Oxygen: Room air Discharge Data Attending Provider: Sen Lancaster Admit Date/Time: 04/20/18 22:22 Quality VTE Deep Vein Thrombosis/Pulmonary Embolism Present on Admission: No
--- NOTE | 2018-04-25 08:44 | P.DS_ITS ---
History of Present Illness Date Patient Seen: 04/25/18 Time Patient Seen: 08:38 Chief complaint: Sepsis / Pneumonia Narrative: 68-year-old man with history of aortic valve replacement and recurrent endocarditis who was brought to the [facility] Emergency room on the April for fever. He and his are visiting their daughter from [place]. He woke up yesterday morning feeling aching all over his body. Subsequently he started having fever. His temperature went up to 103. He has some mild chronic cough, however the cough has not gotten worse lately. He has some right calf pain. He was noted to have elevated white blood cell count. His blood culture 4 bottles were positive for Staph aureus. Chest x-ray showed possible retrocardiac infiltrate. He received IV Levaquin and ceftriaxone at the emergency room. He was admitted to the medicine floor for possible pneumonia. His family feels his mental status has significantly improved overnight. Discharge Providers Date of admission: 04/20/18 22:22 Consults: 04/20/18 22:13 Consult to Physician Routine Comment: Consulting Provider: Sen Lancaster Reason for consultation: Admission Has provider been notified: Yes 04/23/18 11:32 Consult to PICC Line RN Routine Comment: 04/23/18 12:38 Consult to Physical Therapy Evaluate & Treat Comment: d/c needs Physician Instructions: Evaluate and Treat 04/23/18 12:39 Consult to Occupational Therapy Evaluate & Treat Comment: Physician Instructions: d/c needs Discharge provider: GARRETT Botello Summary Discharge Diagnosis: 1. 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 Chronic atrial fibrillation 3. Type 2 diabetes 4. Coronary artery disease 5. Hyperlipidemia Hospital Course: This serves as a five-day summary note for discharge this 68- year-old patient who is vacationing in this area was admitted with probable bacterial endocarditis, who also has a bioprosthetic aortic heart valve. Originally seen in emergency room he presented with a white count of 13.6, fever of 101.8?, respiratory rate in the 20s. Patient was originally treated with IV Levaquin and ceftriaxone in the emergency department. Patient does not meet the criteria for sepsis. Pneumonia was ruled out. Chest CT revealed no evidence for pneumonia. Once admitted to the [facility] the ceftriaxone was continued and vancomycin was added as well to cover possible MRSA infections. Blood cultures x2 reported to show MSSA and after conferring with Dr. Mallory, infectious disease specialist, patient was changed to nafcillin 2 g q.4 hours IV. Repeat blood culture on 22 April 2018 are negative. A PICC line was inserted as this patient would probably need at least 4-6 weeks of continued IV therapy at home. A 2 dimensional transthoracic echocardiogram was performed which revealed normal left ventricular size with an ejection fraction of 60-65% , moderately dilated left atrium, mildly dilated right atrium, moderate mitral annular calcification. The aortic valve replacement as well seated and there is a mildly enlarged ascending aorta. Per previous progress note a YASMINE showed no vegetations or gross abnormalities. Case management and manager social media have been attempting to find resolution to his antibiotic therapy outpatient management. Unfortunately, at this time his insurance will not cover the antibiotic to be necessary as the 1st choice for his endocarditis. At this point he would either have to pay [id number], be [facility], or return to his hometown and admitted to the [facility] there. The patient and his do not wish to pay [id number] her be admitted to [facility]. Patient has agreed to be discharged and seek immediate help [facility] area. He will need continued antibiotic therapy of his nafcillin 2 g q.4 hours IV. We will leave the PICC line in place for his therapy to be continued. Status at Discharge Functional status at discharge: independent ambulation Overall status at discharge: patient is back to baseline Time Spent with Patient Greater than 30 minutes Exam Vital Signs (past 8 hours): Vital Signs - 8 hr 3 04/25/18 01:01 04/25/18 06:36 Temperature 98.1 F Pulse Rate 64 Respiratory Rate 18 Blood Pressure 145/68 H Pulse Oximetry 98 Pulse Oximetry 98 Oxygen Delivery Method Room Air Oxygen Flow Rate 0 Narrative Exam Narrative: Const General: cooperative, healthy appearing and comfortable Nutritional Appearance: overweight Orientation: alert, awake and oriented x3 HENMT Head: normal to inspection, normocephalic and atraumatic Ears: hearing grossly normal bilaterally Nose: external nose normal Face and sinus: normal facial exam Mouth: oral mucosae normal Teeth and gingiva: other (Patient has had the majority of his teeth extracted.) Eyes General: appearance normal, both eyes and all related structures Pupils: PERRL and pupil size (2 mm) Neck Neck: normal visual inspection Other: No JVD, neck tenderness, lymphadenopathy. Chest Chest: normal inspection of the chest Resp Effort & Inspection: normal respiratory effort and able to speak in complete sentences Auscultation: clear to auscultation bilaterally Cardio Rate: regular rate Heart Sounds: S1 normal, S2 normal and murmur (2/6 systolic murmur best heard at the left sternal border. No rubs or gallops) GI Inspection: normal to inspection Palpation: soft Auscultation: normal bowel sounds Back/Spine/Pelvis Back: normal to inspection Cervical Spine: cervical ROM normal Other: Skin Other: Skin is warm and dry. He has several excoriated well-healed lesions on his lower extremities secondary to scratching his lower legs secondary to pruritus. Neuro General: alert, awake and oriented x3 Cognition: normal cognition Speech: speech normal Motor: muscle tone normal throughout Sensory Exam: no sensory deficits noted Other: No nuchal rigidity Extrem General: normal to inspection, full ROM, capillary refill normal, no pedal edema and no calf tenderness Psych Appearance: grossly normal Speech and Movement: speech and movement normal Mood: congruent mood Affect: normal affect Attitude: cooperative Thought Process: normal Thought Content: normal Judgment: judgment good Objective Labs Result Diagrams: 04/24/18 05:40 04/24/18 05:40 Labs: Laboratory Results - last 24 hr 04/25/1818 18 06:15 06:15 06:15 ESR 48 H PT 21.2 H INR 2.0 H C-Reactive Protein 4.0 H Echocardiogram Report + + :Name: OLINDA AGUILA Study Date: 04/21/2018 Height: 70 in : :[facility] Weight: 222 lb : : Gender: Male BSA: 2.2 m2 : :: 1950 Age: 68 yrs BP: 132/64 mmHg: :Reason For Study: Aortic valve replacement - bioprosthetic : : Performed By: Julienne Gregg : :Referring: AL ABRAHAM : + + Interpretation Summary Normal left ventricle size with ejection fraction 60-65%. Moderately dilated left atrium. Mildly dilated right atrium. Moderate mitral annular calcification. The bioprosthetic aortic valve is well-seated. Mildly enlarged ascending aorta. Procedure: A two-dimensional transthoracic echocardiogram with color flow and Doppler was performed. The study quality was technically adequate. There is no prior echocardiogram noted for this patient. The patient was in normal sinus rhythm during the exam. Left Ventricle: The left ventricle is normal in size. There is normal left ventricular wall thickness. The ejection fraction is estimated to be 60-65%. There are no focal wall motion abnormalities. Assessment of diastolic parameters indicates normal left ventricular diastolic function and normal filling pressures. Right Ventricle: The right ventricle grossly appears normal in size with probable normal systolic function. Atria: The left atrium is moderately dilated. The right atrium is mildly dilated. The interatrial septum is intact with no evidence for an atrial septal defect. Mitral Valve: The mitral valve leaflets appear mildly thickened, but open well. There is moderate mitral annular calcification. There is no mitral regurgitation noted. Aortic Valve: There is a porcine aortic valve. The prosthetic aortic valve is well-seated. There is trace aortic regurgitation. Tricuspid Valve: The tricuspid valve leaflets are thin and pliable. There is mild tricuspid regurgitation. The right ventricular systolic pressure is estimated at 34 mmHg assuming a right atrial pressure of 3 mm Hg. Pulmonic Valve: The pulmonic valve is normal in structure and function. There is trace pulmonic regurgitation. Great Vessels: The aortic root is normal size. The ascending aorta is mildly enlarged. The IVC is of normal diameter and collapses greater than 50% with a sniff. This suggests a low right atrial pressure of 3 mm Hg. Pericardium/ Pleura There is no pericardial effusion. There is no pleural effusion. MMode/2D Measurements & Calculations LVIDd: 5.3 cm LVOT diam: 2.3 cm LVIDs: 3.3 cm Ao root diam: 3.1 cm FS: 38.1 % Aortic Jxn: 2.0 cm EPSS: 0.66 cm asc Aorta Diam: 3.7 cm IVSd: 0.99 cm Ao Arch Diam (Prox Trans): 3.2 cm LVPWd: 1.0 cm LV mann. diameter/BSA (cm/m^2): 2.4 LV sys. diameter/BSA (cm/m^2): 1.5 LA dimension: 4.8 cm RA long axis: 5.5 cm LA A2 area: 33.0 cm2 RA area: 24.4 cm2 LA A4 area: 28.1 cm2 RA vol: 92.8 ml LA length (vol): 6.1 cm RA : 42.5 ml/m2 LA vol: 128.5 ml IVC diam: 1.4 cm LA vol index: 58.9 ml/m2 RVDd major: 6.1 cm RVD1 (basal): 4.3 cm RVD2 (mid): 3.8 cm Doppler Measurements & Calculations Ao V2 max: 281.4 cm/sec LVOT Max Ky: 94.4 cm/sec Ao V2 mean: 172.7 cm/sec LV V1 max P.6 mmHg Ao max P.7 mmHg LV V1 VTI: 26.2 cm Ao mean P.0 mmHg ANGI(I,D): 1.8 cm2 Ao V2 VTI: 60.0 cm ANGI(V,D): 1.4 cm2 sev ratio: 0.44 ANGI indexed to BSA (cm^2/m^2): 0.84 AI P1/2t: 478.6 msec AI dec slope: 272.0 cm/sec2 MV E max ky: 127.9 cm/sec TR max ky: 280.1 cm/sec MV A max ky: 105.0 cm/sec TR max P.4 mmHg MV E/A: 1.2 PA V2 max: 87.4 cm/sec Med Peak E' Ky: 7.9 cm/sec PA V2 mean: 58.8 cm/sec E/E' med: 16.2 PA mean P.6 mmHg Lat Peak E' Ky: 10.2 cm/sec PA Accel Time: 0.13 sec E/E' lat: 12.5 E/e' average: 14.4 MV dec time: 0.22 sec MV P1/2t: 67.2 msec MV P1/2t max ky: 128.9 cm/sec MVA(P1/2t): 3.3 cm2 Electronically signed by: Manpreet Slade on Reading Physician:04/21/2018 04:41 PM Discharge Plan Discharge Plan Patient Disposition: Home, Self-Care Discharge comment: Patient will need to be [facility] at [facility] [place] town for continuation of his antibiotic therapy.. Provider Discharge Instructions Diet: Carb-consistent/Diabetic Diet comment: Heart healthy/cardiac diet Activity: As tolerate. Patient may need walker initially for building muscle strength. Oxygen: Room air Discharge Data Attending Provider: Sen Lancaster Admit Date/Time: 04/20/18 22:22 Quality VTE Deep Vein Thrombosis/Pulmonary Embolism Present on Admission: No
--- NOTE | 2018-04-25 09:25 | PT.IPTN ---
Current Diagnoses Sepsis, unspecified organism (04/20/18) Physical Therapy Treatment Note M2 PT-IP Current Condition Start: 04/23/18 17:10 Freq: NEEDED Status: Active Protocol: Document 04/25/18 09:25 TMS (Rec: 04/25/18 16:00 TMS [email or web address]) Physical Therapy Current Condition Current Condition Evaluation Date 04/23/18 Treatment Diagnosis sepsis; PNA; difficulty in walking Onset Date 04/20/18 Precautions Other Precautions Contact precautions: MRSA: blood M3 PT-IP Subjective Start: 04/23/18 17:10 Freq: NEEDED Status: Active Protocol: Document 04/25/18 09:25 TMS (Rec: 04/25/18 16:00 TMS [email or web address]) Subjective Physical Therapy Visit Type Type Treatment Note Visit Start Time 09:00 Visit Stop Time 09:25 Total Visit Minutes 25 Number of PILLOWCASE FOLDER Visits 1 Physical Therapy Visit Comments Patient Comments Pt. being discharged, will stay in town for a couple days before he returns to [place]. M4 PT-IP Mobility and Gait Start: 04/23/18 17:10 Freq: NEEDED Status: Active Protocol: Document 04/25/18 09:25 TMS (Rec: 04/25/18 16:00 TMS [email or web address]) PT-Transfer Assessment Sit to and From Stand Sit to and from Stand Standby Assistance Equipment Transfer Assistive Device None Gait Belt Straight Cane Front Wheeled Walker Gait Assessment Gait Gait Assistance Required: Contact Guard Assist Distance (Feet) (feet) 400 Able to Maintain Weight Bearing Status Yes During Gait Assistive Devices Assistive Device None Gait Belt Straight Cane Front Wheeled Walker Orthotic/Prosthetic Devices or Brace: No Gait Deviations General Gait Pattern Decreased Stride Length Narrow Based Gait Factors Limiting Gait Function Factors Limiting Gait Function Decreased Strength Comments Gait Comments Pt. used FWW initially, then just pushed IV pole. Walked without A.D. but felt his left knee was weak and didn't feel comfortable without A.D. Gait x 220 ft. with single point cane/CGA. M5 PT-IP Objective Assessments Start: 04/23/18 17:10 Freq: NEEDED Status: Active Protocol: Document 04/23/18 17:11 AB (Rec: 04/23/18 17:21 AB [id number]) Orientation Orientation/Cognition Level of Alertness Alert Strength Lower Extremity Strength Assessment Bilaterally Impaired Comments Strength Comments LLE: 4-/5 weaker than RLE 4/5 M6 PT-IP Treatment Start: 04/23/18 17:10 Freq: NEEDED Status: Active Protocol: Document 04/24/18 11:08 EA (Rec: 04/24/18 11:16 EA [id number]) Physical Therapy Treatment Exercises Exercises Ankle Pumps M7 PT-IP Assessment and Plan Start: 04/23/18 17:10 Freq: NEEDED Status: Active Protocol: Document 04/25/18 09:25 TMS (Rec: 04/25/18 16:00 TMS [email or web address]) PT Summary Assessment and Plan Potential Rehabilitation Potential Excellent Summary Impairments Strength Assessment Summary Pt. doing much better today. Safe to walk with cane, good endurance. has an extra cane pt. can use, will be safe to go home with cane. Recommendations To Nursing Amount of Assist Needed 1 Person Assist Discharge Recommendations PT Discharge Recommendations Home with 03/06 Assist Home Health
[2018-04-25] MEDS: RANOLAZINE 500 MG TAB.ER.12H 1000 MG PO (11:10)
--- NOTE | 2018-04-25 15:37 | PC.NURSE ---
called [facility]. Spoke with Thomas Vines RN. Informed him of plan for pt to d/c here after 2015 dose of abx and drive to [facility]. plan on pt arrival between 2131-3142 tomorrow morning. pt to d/c with PICC in place. called [phone] ext [phone].
--- NOTE | 2018-04-25 15:58 | CM.DPNOTE ---
DCP Cont/ DC Note: Work continued throughout the morning to secure a safe and reasonable DCP for this pt; most attempts failed. Spoke w/THOM De Souza on the RN Sergio team at [facility] many times, P#[phone]. She gave me the contact for the home nutrition services associate, Ayo Dos Santos, same number ext [phone], this TEST ENGINE EVALUATOR did not need to contact Ayo today. Received notification from [facility] this morning that pt had no coverage for the IV Nafcillin, 2 mg, Q4 w/Medicare or , it would be a 100% out of pocket cost ($1,000 + weekly). Then spoke w/[facility], they can not accept any new referrals today. Then called Megan Tavera to review referral; Michelle had gotten the estimated cost of this drug from their pharmacy and they can not afford to accept pt d/t it's high daily cost. Most SNFs would have the same barrier. Presented all information above to both the provider, GARRETT Hanna and pt/spouse. Yair was willing to call ID Dr Mallory to review other options but pt/spouse wanted to get closer [place] a [place] [facility] near them, [place]. Updated Yair Hanna and he completed the DC order home. Worked the plan w/pt/spouse, THOM Payan and [facility] THOM de souza; pt/spouse have decided to drive down to [facility] and present to the [place]. THOM De Souza had explained that likely, once admitted to the [place] [facility], pt would be referred to the [facility] ([facility] for ongoing IV abx, this is located on the same campus as their acute care hospital. Pt planning to remain here until his 2014 dosing and head south straight to [place]. THOM Payan offered to call the [place] ER Nurses line to give them a heads Up at (main number) ext [phone] JASVIR Sheriff
[2018-04-25] MEDS: WARFARIN 5 MG TABLET PO (16:59)
--- NOTE | 2018-04-25 20:39 | PC.NURSE ---
DISCHARGE A&Ox3, pleasant and cooperative with care. independent with ADLs. c/o R flank pain rated 8/10 due to previous nephrectomy surgery. pt verbalized understanding of plan to d/c from hospital and drive to [facility] in [place], [place] to continue IV antibiotic treatment. Pt d/c via wheelchair at approximately 2036 from unit with HAND STRIPPER escort. PICC intact. pt given copies of medical records to take with him.
== END 2018-04-25 20:37 | disposition other institution (70) | DRG 290 ==
LOC: ED 22:13 → AC 22:23
PROVIDERS: Internal Medicine; Admitting Provider Internal Medicine; Emergency Provider Emergency Medicine; Visit Provider Internal Medicine
DX: I33.0 Acute and subacute infective endocarditis (principal); I48.2 Chronic atrial fibrillation; Z79.01 Long term (current) use of anticoagulants; E11.9 Type 2 diabetes mellitus without complications; Z79.84 Long term (current) use of oral hypoglycemic drugs; E78.5 Hyperlipidemia, unspecified; I10 Essential (primary) hypertension; Z66 Do not resuscitate; B95.61 Methicillin susceptible Staphylococcus aureus infection as the cause of diseases classified elsewhere; Z95.2 Presence of prosthetic heart valve; I25.10 Atherosclerotic heart disease of native coronary artery without angina pectoris; M54.5 Low back pain
CPT/HCPCS: 36415; 36591; 36592; 71046; 71250; 80048; 80202; 81001; 82247; 82962; 83605; 84145; 85025; 85610; 85651; 86140; 87040; 87086; 87150; 87186; 87205; 94760; 96361; 96365; 96368; 97110; 97116; 97162; 99284; C8929; J1642; J1650; J1956; J2405